=== PATIENT | male | born 1950 | race African-American/Black ===

== ENCOUNTER 2017-01-26 14:37 | Inpatient (IN) | payer MEDICARE, OTHER ==
[~2017-01-26] VITALS: Ht 185.4 cm; Wt 94.2 kg
[2017-01-26] VITALS (11 sets, daily range): BP systolic 96–113; BP diastolic 47–71; BMI 23.2
--- NOTE | ~2017-01-26 | OP ---
PATIENT NAME: ANÍBAL DUARTE MEDICAL RECORD: [id number] :48 LOCATION:[facility] D.2305 ADMISSION DATE:01/26/17 SURGEON: EPI GUERRIER MD DATE OF OPERATION: 01/29/2017 PREOPERATIVE DIAGNOSES: 1. Need for IV access. 2. End-stage renal disease. 3. Common bile duct obstruction. 4. Ascending cholangitis. 5. Acute respiratory failure on the ventilator. POSTOPERATIVE DIAGNOSES: 1. Need for IV access. 2. End-stage renal disease. 3. Common bile duct obstruction. 4. Ascending cholangitis. 5. Acute respiratory failure on the ventilator. PROCEDURE: Left IJ 15 cm Trialysis catheter placement. SURGEON: Epi Guerrier MD REPORT OF PROCEDURE: The left chest and neck were prepped and draped in sterile fashion. An ultrasound was used to visualize the left internal jugular vein, 5 cc of 1% lidocaine was infused over the vein. A needle was used to cannulate the jugular vein under ultrasound guidance and a guidewire was advanced with this. Over this wire, a dilator was placed followed by the Trialysis catheter. The catheter aspirated nonpulsatile dark blood and flushed easily with normal saline. This was sutured into place with 4-0 nylons and dressed appropriately. COMPLICATIONS: None. CONDITION: Stable. ANESTHESIA: General endotracheal and local. BLOOD LOSS: Minimal. Procedure done at the bedside. TRANSINT:[id number] Voice Confirmation ID: [id number] DOCUMENT ID: [id number] EPI GUERRIER MD CC: [id number] DICTATION DATE: 01/29/17 162 TASSEL SNIPPER: 01/29/172100 ADM IN [place] [id number] [place] [address]
[~2017-01-26 14:37] MED LIST: ACETAMINOPHEN500 M1 PO; CYMBALTA20 MG PO; DULCOLAX10 MG/SUPP RC; FUROSEMIDE20 MG PO; HUMALOG 30100 UNITS/; LEVAQUIN250 MG PO; LEVOXYL75 MCG PO; LOTRISONE CREAM45 GM TOPICAL; NEPHRO-VITE RX1 TAB PO; NORCO 7.5/325 T1 TA1 PO; NYSTATIN1 PWD TOPICAL; PACERONE100 MG PO; TIROSINT13 MCG; TUMS500 MG; TUMS500 MG PO; ULTRAM50 MG; ULTRAM50 MG PO; ZOFRAN4 MG PO
--- NOTE | 2017-01-26 15:14 | NUR ---
PT RECIEVED FROM HIDE PASTER AT 1420 ALERT, CONFUSED, VSS, SEE ADMISSION ASSESSMENT, LUNGS CLEAR THOUGH DIMISHED IN LOWER LOBES, PIV IN RIGHT WRIST, SUPRAPUBIC CATHETER IN PLACE DRAINING DARK YELLOW URINE, CONTRACTURES TO LOWER EXTREMETIES, JONATHAN FAITH AND LESLIE CONSULTED, MARCELL ON UNIT SPEAKING TO , AT BEDSIDE. WILL CO MARIAN TO MONITOR
[2017-01-26] MEDS ORDERED: MEGACE40 MG PO (15:24)
[2017-01-26] MEDS ORDERED: OXYBUTYNIN CHLOR5 MG PO (15:25)
[2017-01-26 15:56] LABS: BASOPHILS 0.3 % (0-2); EOSINOPHILS 0.1 % (0-7); HEMOGLOBIN 8.9 g/dL (13.5-17.5); IMMATURE GRANULOCYTES 2.3 % (0-5); LYMPHOCYTES 9.2 % (15-50); MCHC 31.8 g/dL (31.0-37.0); MCV 94.3 fL (80.0-100.0); MEAN PLATELET VOLUME 9.8 fL (7.4-10.4); MONOCYTES 7.7 % (2-11); NEUTROPHILS 80.4 % (40-80); PLATELET COUNT 300 10x3/uL (130-400); RBC 2.97 10x6/uL (4.20-6.10); RDW 19.7 % (11.5-14.5); WBC 19.2 10x3/uL (4.8-10.8)
[2017-01-26 16:14] LABS: ALBUMIN 1.6 g/dL (3.4-5.0); ALKALINE PHOSPHATASE 397 U/L (46-116); CARBON DIOXIDE 25.9 mmol/L (21.0-32.0); CREATININE - SERUM 0.8 mg/dL (0.6-1.3); UREA NITROGEN 47 mg/dL (7-18); eGFR NON AFRICAN AMERICAN > 90 mL/min (90-120)
[2017-01-26 16:31] LABS: CALC OSMOLALITY 290 mosm/kg (275-300); CALCIUM 8.3 mg/dL (8.5-10.1); CHLORIDE - SERUM 97 mmol/L (98-107); GLUCOSE 151 mg/dL (74-106); POTASSIUM - SERUM 4.2 mmol/L (3.5-5.1); SODIUM 138 mmol/L (136-145)
[2017-01-26 16:34] LABS: ALT (SGPT) 115 U/L (10-68); PROTEIN - SERUM 5.7 g/dL (6.4-8.2)
[2017-01-26 16:35] LABS: BILIRUBIN - DIRECT 9.23 mg/dL (0.00-0.30); BILIRUBIN - INDIRECT 4.87 mg/dL (0.00-1.00)
--- NOTE | 2017-01-26 17:13 | NUR ---
PT REPOSITIONED, VSS, CONTRAST DRANK FOR CT WITHOUT DIFFICULTY, CT AWARE, DENIES PAIN, WILL CONTINUE TO MO NITOR
--- NOTE | 2017-01-26 19:20 | NUR ---
SHIFT ASSESSMENT COMPLETE. PT IS ALERT AND CAN FOLLOW COMMANDS. HE STILL THINKS HE IS IN MARK[place], BUT HE REORIENTS EASILY. NC @ 2 L/MIN. S1S2 AUDIBLE. HR 80 BPM, NS VIA TELEMETRY. RR EVEN AND NONLABORED, CLEAR BREATH SOUNDS THROUGHOUT ALL LOBES. BS ACTIVE X4. COLOSTOMY BAG IN L UPPER QUAD WITH A SCANT AMOUNT OF FECAL MATTER. SUPRA PUBIC CATH DRAINING DARK CONCENTRATED URINE. RADIAL AND PEDAL PULSES PALP. L UPPER ARM FISTULA, L ARM RESERVE. THRILL AND BRUIT PALP/AUSCULTATED. CONTRACTURES IN LOWER LEGS. NPO. PT DRANK CONTRAST FOR CT OF ABD. L WRIST IV. NO FLUIDS INFUSING AT THIS TIME PER GERSCH REQUEST. JAUNDICE IN BOTH EYES. PUPILS 3 MM, BRISK REACTION TO LIGHT. PT REQUEST HIS BLANKET OVER HIS HEAD AT THIS TIME SO HE CAN SLEEP IN THE DARK. PT DENIES ANY FURTHER REQUEST. WILL CONT WITH POC.
--- NOTE | 2017-01-26 21:30 | NUR ---
PT REPOSITIONED FOR COMFORT. PILLOW INBETWEEN LEGS REQUESTED. PT ASKS THAT HIS FACE BE COVERED WITH HIS BLANKET WHEN HE SLEEPS. BLANKET PULLED UP OVER HIS FACE PER REQUEST. CALL LIGHT IN REACH. WILL CONT TO MONITOR.
--- NOTE | 2017-01-26 23:00 | NUR ---
REASSESSMENT COMPLETE. ORAL CARE PROVIDED AND LEFT ON BED SIDE TABLE. PT ALERT AND ORIENTED X3. HE STILL THINKS HE IS IN MARKUS. REORIENTS EASILY. JAUNDICE NOTED IN BOTH EYES. NC @ 2L/MIN, O2 SAT 99%. WHEN TALKING TO PT HE RESPONDS APPROPRIATELY AT FIRST BUT THEN DRIFTS OFF TO SLEEP. RADIAL AND PEDAL PULSES PALP. S1S2 AUDIBLE; HR 80 NORMAL SINUS RHYTHM. RR REGUALR AND NONLABORED. PT DENIES ANY FURTHER REQUESTS. WILL CONT TO MONITOR.
[2017-01-27] VITALS (51 sets, daily range): BP systolic 65–127; BP diastolic 36–88; Ht 185.4 cm; Wt 94.2 kg
--- NOTE | 2017-01-27 01:30 | NUR ---
PT RESTING PEACEFULLY AT THIS TIME. ORAL CARE PROVIDED. VSS. PT DENIES ANY FURTHER REQUESTS. CALL LIGHT IN REACH. WILL CONT TO MONITOR.
[2017-01-27 02:57] LABS: BASOPHILS 0.2 % (0-2); EOSINOPHILS 0.1 % (0-7); HEMATOCRIT 27.5 % (42.0-54.0); IMMATURE GRANULOCYTES 2.1 % (0-5); LYMPHOCYTES 10.5 % (15-50); MCHC 32.7 g/dL (31.0-37.0); MCV 91.7 fL (80.0-100.0); MEAN PLATELET VOLUME 9.9 fL (7.4-10.4); MONOCYTES 6.3 % (2-11); NEUTROPHILS 80.8 % (40-80); PLATELET COUNT 303 10x3/uL (130-400); RDW 19.8 % (11.5-14.5); WBC 16.8 10x3/uL (4.8-10.8)
[2017-01-27 03:10] LABS: APTT 46.4 SECONDS (22.8-39.4); INR 2.9 (0.85-1.17); PROTIME 30.6 SECONDS (11.6-15.0)
--- NOTE | 2017-01-27 03:20 | NUR ---
REASSESSMENT COMPLETE. PT STATES THAT HE WANTS TO REMAIN ON THE SIDE THAT HE IS LYING ON. ORAL CARE PROVIDED. BP TENDS TO TREND DOWN WHILE HE IS ASLEEP, BUT ONCE HE IS AWAKENED IT REBOUNDS. HE STATES THAT HE FEELS "OKAY" AT THIS TIME. VSS. NO CHANGES NOTED. TV ON. BED IN LOWEST POSITION. CALL LIGHT IN REACH.
[2017-01-27 03:22] LABS: ALBUMIN 1.6 g/dL (3.4-5.0); CALCIUM 8.5 mg/dL (8.5-10.1); CARBON DIOXIDE 29.1 mmol/L (21.0-32.0)
[2017-01-27 03:25] LABS: ANION GAP 14.3 mmol/L (8-16); BILIRUBIN - TOTAL 28.42 mg/dL (0.2-1.3); CREATININE - SERUM 5.7 mg/dL (0.6-1.3); POTASSIUM - SERUM 3.4 mmol/L (3.5-5.1); PROTEIN - SERUM 5.9 g/dL (6.4-8.2)
--- NOTE | 2017-01-27 05:15 | NUR ---
REPOSITIONED PT WITH RESPIRATORY AT BEDSIDE. PT STATES THAT HIS BUTTOCKS IS SORE. MOVED HIM OVER TO THE LEFT. PILLOWS INBETWEEN LEGS. ORAL CARE PROVIDED. PT STATES THAT HE IS COMFORTABLE AT THIS TIME AND DENIES ANY FURTHER REQUESTS. VSS. WILL CONT TO MONITOR.
--- NOTE | 2017-01-27 07:00 | NUR ---
REPORT RECIEVED FROM OFF GOING NURSE. PT. IN BED WITH CONTRACTED BLE. PT MAKING UNCOPREHENISBLE SOUNDS BUT ABLE TO ANSWER "YES". DENIES PAIN AT THIS TIME. ALERT TO PERSON ONLY. FISTULA TO LUE. LUE RESERVERED. BRUIT ASCULTATED AND THRILL PALPATEED. COLOSTOMY TO L ABD IN PLACE WITH NO FECES NOTED. STOMA PINK AND WET. SUPRAPUBIC CATHETER NOTED. HX OF PENIS AMPUTATION SURGERY. O2 AT 2L VIA. NO FAMILY AT BED SIDE. CALL LIGHT IN REACH. WILL CONT POC.
--- NOTE | 2017-01-27 08:00 | NUR ---
CALLED R/T CONCENT FOR TODAY'S PROCEDURE R/T NICKO. CONCENT IN CHART. STATED WHE WILL BE HERE LATER FOR ADVANSED DIRECTIVES.
--- NOTE | 2017-01-27 08:30 | NUR ---
BP TAKEN IN RIGHT ARM WITH RESULTS OF 45/25 64/44 64/46. MD NOTIFIED WITH NEW ORDERS TO START BOLUS AND POSSIBLE LEVOPHED.
--- NOTE | 2017-01-27 09:00 | NUR ---
PT INR 2.9. SPOKE WITH DR FAITH WITH ORDER ABOUT VIT K. ALSO STATED THE SURGERY MIGHT BE POSTPONED
--- NOTE | 2017-01-27 09:10 | NUR ---
NEW ORDRES PER VOISE FOR 1 UNIT OF FFP WITH 1 ON HOLD AND TO RECHECK INR AFTER GIVEN. AWARE OF BP ISSUE.
--- NOTE | 2017-01-27 09:18 | NUR ---
NS 250ML BOLUS STARTED.
--- NOTE | 2017-01-27 09:41 | NUR ---
IV STARTED IN RIGHT AC WITH 20G CATH, GOOD BLOOD RETURN NOTED, AND FLUSHED EASILY, WITHOUT REDNESS OR EDEMA AT SITE. SLIGHTLY POSITIONAL AT TIMES.
--- NOTE | 2017-01-27 09:45 | NUR ---
BP 74/31. SECOND BOLUS STARTED PER ORDRES.
--- NOTE | 2017-01-27 10:13 | NUR ---
ESDRAS [place] RECIEVED FROM PHARMACY. STARTED PER ORDRES. 2ND BOLUS COMPLETED. BP 83/39 DIALASIS NURSE AT BED SIDE. MADE HER AWARE AWARE OF BP. CASING CREW PUSHER PAGED.
--- NOTE | 2017-01-27 10:19 | NUR ---
BP 88/41. STILL WAITING FOR MD TO CALL BACK.
--- NOTE | 2017-01-27 11:00 | NUR ---
LEVOPHED STARTED PER ORDERS. PT FFP READY AND VERIFIED WITH 2ND RN AND BHAVNA. NO S/SX OF ASE NOTED.
--- NOTE | 2017-01-27 11:20 | NUR ---
VOICED STATED IF THE HAVE NOT CAME FOR CT, THEN NOT TO WORRY ABOUT IT.
--- NOTE | 2017-01-27 12:24 | NUR ---
FFP COMPLETED. NO S/SX OF ASE NOTED. WILL CONT. TO MONITOR VS PER POLICY.
--- NOTE | 2017-01-27 12:34 | NUR ---
PT/INR REORDERED PER ORDER FROM DR FAITH.
[2017-01-27 12:50] LABS: INR 3.07 (0.85-1.17)
--- NOTE | 2017-01-27 13:00 | NUR ---
REMAINS ON LEVOPHED 5MCG/MIN. SBP STABLE AT 110.
--- NOTE | 2017-01-27 14:00 | NUR ---
REMAINS ON LEVOPHED. SPB STABLE.
--- NOTE | 2017-01-27 15:25 | NUR ---
GI NURSE HERE TO GET PT READY FOR GI PROCEDURE.
--- NOTE | 2017-01-27 15:29 | NUR ---
* Is the patient Alert and Oriented? Yes 0 * How many steps to enter\exit or inside your home? Ramp 0 * PCP Dr. Henderson in [place] 0 * Pharmacy [facility] 0 * Preadmission Environment Home with Family 0 * ADLs Partial Dependent 0 * Partial ADLs (Assistance needed) Ambulation Bathing Dressing Medication Management Toileting Transfers 0 * Equipment Bedside [facility] Bed Inga Lift Trapeze Wheelchair 0 * List name and contact numbers for known caregivers / representatives who currently or will assist patient after discharge: Spouse - Taylor [phone] 0 * Community resources currently utilized Home Health Other 0 * Please name any agencies selected above. [facility] [phone] [facility] 0 * Additional services required to return to the preadmission environment? No 0 * Can the patient safely return to the preadmission environment? Yes 0 * Has this patient been hospitalized within the prior 30 days at any hospital? No Patient Name: ANÍBAL DUARTE Admission Status: Elective Accout number: [id number] Admission Date: 01-26-2017 : 1950 Admission Diagnosis:UNSPECIFIED JAUNDICE Attending: NAHID Current LOS: 1 Planned Disposition: Home with Home Health Primary Insurance: MEDICARE A & B Discharge Planning Comments: CM spoke with spouse, Taylor, via telephone to assess dc plans/needs. She reports patient lives at home with her. She reports she is his primary caregiver & assists him daily with all ADL's. He goes to HD on MWF @ 1100 via [facility]. He is currently being seen by [facility] for monthly britt changes. They want to resume services at discharge. CM will follow & assist as needed. Import/Export Specialist: Renay Ferrell
--- NOTE | 2017-01-27 15:30 | NUR ---
PT CALLED TO NOTIFY ABOUT PROCEDURE. NO ANSWER. CONCENT FORM IN CHART. NO ANSWER FROM PHONE
[2017-01-27 15:33] LABS: INR 1.49 (0.85-1.17); PROTIME 17.9 SECONDS (11.6-15.0)
--- NOTE | 2017-01-27 15:35 | NUR ---
INR 1.49. GI TEAM HERE IN ICU. PROCEDING WITH ERCG.
--- NOTE | 2017-01-27 15:36 | NUR ---
ATTEPMTED TO CALL AND SISTER ABOUT ERCG PROCEDURE. NO ANSWER.
--- NOTE | 2017-01-27 15:48 | NUR ---
LEFT ICU WITH GI TEAM FOR ERCG. BREATHING NORMAL AND UNLABORED. SBP STABLE AT 108. 0 S/SX OF DISTRESS/DISCOMFORT NOTED. WILL CONT POC
--- NOTE | 2017-01-27 19:00 | NUR ---
REPORT GIVEN TO ON COMING NURSE. PT HAS NOT CAME BACK FROM SURGERY YET.
--- NOTE | 2017-01-27 19:20 | NUR ---
PT ARRIVED BACK IN [address] ROSS. REPORT RECIEVED. LEVOPHED @ 2.5 MCG/KG/MIN. BP 109/74. PT INTUBATED. VENT SETTINGS: A/C;L RATE-14; TIDAL VOLUME-600; FIO2-100%; PEEP 5.0. O2 SAT 98%. PT EYES ARE OPEN AND HE NODS YES/NO APPROPRIATELY TO QUESTIONS ASKED. WILL CONT WITH POC.
--- NOTE | 2017-01-27 19:30 | NUR ---
SHIFT ASSESSMENT COMPLETE. PT ABLE TO FOLLOW SIMIPLE COMMANDS. HAND DIAMOND BROKER ARE WEAK. NODS HIS HEAD YES/NO WHEN ASKED QUESTIONS. ETT SIZE 7, POSITION: 22 LEFT LIPLINE. S1S2 AUDIBLE. HR 66 BPM NS VIA TELEMETRY. L UPPER ARM FISTULA, BRUIT/THRILL PALP/AUSCULTATED. AREA CDI. CLEAR BREATH SOUNDS THROUGHOUT ALL LOBES. ABD FIRM AND DISTENDED. COLOSTOMY ON L UPPER ABD. BOWEL SOUNDS ACTIVE IN ALL FOUR QUADS. SUPRA PUBIC CATH NOTED DRAINING DARK, EDGARDO, CONCENTRATED URINE. RADIAL AND PEDAL PULSES PALP. R HAND AND R AC PIV. R AC INFUSING LEVOPHED @ 2.5 MCG/KG/MIN. BP: 98/54, RR 14, TEMP 97.7 AXILLARY, O2 SAT 98%. SOFT WRIST RESTRAINTS REMOVED AND SKIN INSPECTED, WNL. BED ALARM ON. BED IN LOWEST POSITION. PT IN SIGHT OF NURSE'S STATION. WILL CONT WITH POC.
--- NOTE | 2017-01-27 21:15 | NUR ---
PT RESTING PEACEFULLY AT THIS TIME. LEVOPHED TURNED UP TO 5 MCG/KG/MIN DUE TO A TREND DOWN IN PTS BP. WILL CONT TO MONITOR BP CLOSELY. NO SIGNS OF ACUTE DISTRESS AT THIS TIME.
--- NOTE | 2017-01-27 23:30 | NUR ---
REASSESSMENT COMPLETE. PT ABLT TO FOLLOW SIMPLE COMMANDS. WEAK HAND SPOUTER BILAT. BP IS STAYING IN THE LOW 100'S SYSTOLIC, MAP IS OVER 65. S1S2 AUDIBLE. ABD FIRM AND DISTENDED WITH ACTIVE BS IN ALL FOUR QUADS. RADIAL AND PEDAL PULSES PALP. REPOSITIONED FOR COMFORT. BED IN LOWEST POSITION. WILL CONT TO MONITOR.
[2017-01-28] VITALS (90 sets, daily range): BP systolic 70–126; BP diastolic 44–102
--- NOTE | 2017-01-28 01:15 | NUR ---
REPOSITIONED PT FOR COMFORT. ORAL CARE PROVIDED. BP 96/50 MAP 70. PT NODS HIS HEAD THAT HE IS COMFORTABLE AT THIS TIME. WILL CONT TO MONITOR CLOSELY. NO S/S OF DISTRESS NOTED AT THIS TIME.
--- NOTE | 2017-01-28 03:30 | NUR ---
REASSESSMENT COMPLETE. HERNIA ON ABD MEASURED 8 IN X 8 IN. ABD IS FIRM AND DISTENDED. ACTIVE BS X4. S1S2 AUDIBLE. PT IS ABLE TO FOLLOW SIMPLE COMMANDS. LEVOPHED INFUSING AT 5 MCG/KG/MIN. BP IS STABLE AT THIS TIME. NO FURTHER CHANGES NOTED. WILL CONT TO MONITOR.
--- NOTE | 2017-01-28 05:20 | NUR ---
PT IS MORE ALERT AT THIS TIME. REPOSITONED FOR COMFORT AND ORAL CARE PROVIDED. BP READINGS HAVE BEEN TRENDING DOWN AND THE LATEST ONE IS 70/53. LEVOPHED INCREASED TO 6 MCG/KG/MIN. WILL CONT TO MONITIOR.
--- NOTE | 2017-01-28 07:00 | NUR ---
REPORT RECIEVED FROM OFF GOING NURSE. PT REMIANS ON VENT SIMV RATE OF 14 T VOL 600, FIO2 100% PEEP 5. SIZE 7 22 AT THE LEFT LIP. PT PT REPOSITIONED AND BUTTPASTE APPLIED TO BUTTOX. HYPOACTIVE BOWEL SOUNDS X4. HX OF PENECTOMY. COLOSTOMY NOTED WITH A WET PINK STOMA. ABD DESTENED. HX OF HERNIA. SUPRAPUBIC CATH NOTED WITH NO OUT PUT. SEE ASSESSMENT FLOW SHEET. WILL CONT POC
--- NOTE | 2017-01-28 07:04 | OP ---
PATIENT NAME: ANÍBAL DUARTE MEDICAL RECORD: [id number] :48 LOCATION:[facility] D.2305 ADMISSION DATE:01/26/17 SURGEON: REILLY FAITH DO DATE OF OPERATION: 01/27/2017 PROCEDURE: ERCP with sphincterotomy and stent placement. INDICATIONS FOR PROCEDURE: Hyperbilirubinemia and suspected choledocholithiasis. SCOPE: Olympus video side-viewing duodenoscope. MEDICATIONS: General anesthesia by anesthesia. ESTIMATED BLOOD LOSS: Less than 2 mL. COMPLICATIONS: During intubation for general anesthesia, the patient may have aspirated some, he did regurgitate stomach contents. He was placed on his side to remove and suction all the vomitus and was intubated subsequently. We had no problem with oxygenation intraprocedurally that I am aware of. Also, during the procedure, a stent was displaced proximally into the common bile duct and is currently a retained stent. There is a subsequent stent that is allowing drainage of bile around the stricture and the retained stent within the duct. FINDINGS: Informed consent was given. The patient was sedated as above. The duodenoscope was placed through the mouth and directed under visualization to the second portion of the duodenum where the ampulla was encountered. On passage of the endoscope there were multiple sites throughout the esophagus, stomach, and duodenum where inflammation and ulcerations were present. I had significant difficulty cannulating the common bile duct. Approximately 45 minutes was spent trying to do so. Precut sphincterotomy with the sphincterotome was performed and dissection from the pancreatic orifice and the biliary orifice eventually allowed deep biliary cannulation. Initial cholangiogram revealed an extremely dilated duct to approximately 2 cm without a visualized stone, which was felt to be the case from CT imaging. There did seem to be a distal stricture crossing approximately a 1.5 cm segment. It was dilated up to 6 mm with a hurricane balloon and was brushed with a cytology brush. Double stenting was attempted to perform a prolonged mechanical dilation. The first stent placed was a 7-Tamazight x 7 cm straight plastic stent. The second stent was a 7-Tamazight x 5 cm straight plastic stent. When the second stent was placed alongside the other, the original stent migrated inward to where just the tip could be visualized at the ampullary orifice. As a snare was placed down the endoscope to remove the second stent, the first stent migrated inward into the duct beyond the strictured site. Multiple attempts were made at trying to remove the stent, but was unsuccessful at this time. Subsequently, a 10-Tamazight x 7 cm straight plastic stent was placed across the stricture. This procedure lasted approximately 2 hours or longer and it was felt unsafe to continue this procedure at this time, so a stent was placed and the procedure was terminated. IMPRESSION: 1. No definite stone encountered. OPERATIVE REPORT [id number] ANÍBAL DUARTE 2. A distal common bile duct stricture was encountered (as described above), which was dilated and brushed. 3. Retained stent within the common bile duct and a subsequent stent placement for effective drainage. PLAN AND RECOMMENDATIONS: 1. Monitor for decrease in bilirubin and decompression of the biliary system. 2. Okay to proceed to a laparoscopic cholecystectomy when clinically stable. 3. I will need to repeat the ERCP for another attempt at removal of the retained stent. 4. Follow up on biopsies / biliary brushings. TRANSINT:[id number] Voice Confirmation ID: [id number] DOCUMENT ID: [id number] REILLY FAITH DO at 0704 CC: [id number] DICTATION DATE: 01/27/17 1841 EXCELLENCE COACH: 01/28/17 0054 [facility] [address] [place] [address]
[2017-01-28 07:42] LABS: HEMATOCRIT 29.9 % (42.0-54.0); HEMOGLOBIN 9.9 g/dL (13.5-17.5); MCH 29.9 pg (26.0-34.0); MCHC 33.1 g/dL (31.0-37.0); MCV 90.3 fL (80.0-100.0); MEAN PLATELET VOLUME 10.4 fL (7.4-10.4); PLATELET COUNT 311 10x3/uL (130-400); RBC 3.31 10x6/uL (4.20-6.10); RDW 19.7 % (11.5-14.5); WBC 34.4 10x3/uL (4.8-10.8)
[2017-01-28 07:54] LABS: INR 1.29 (0.85-1.17)
[2017-01-28 08:16] LABS: EOSINOPHILS 1 % (0-7); LYMPHOCYTES 9 % (15-50); MONOCYTES 6 % (2-11); NEUTROPHILS 70 % (40-80); PLATELET ESTIMATE NORMAL
[2017-01-28 08:17] LABS: ANISOCYTOSIS OCC; HYPOCHROMASIA 1+; TARGET CELLS OCC
[2017-01-28 08:23] LABS: ALBUMIN 1.6 g/dL (3.4-5.0); CALCIUM 8.1 mg/dL (8.5-10.1); POTASSIUM - SERUM 3.8 mmol/L (3.5-5.1)
[2017-01-28 08:24] LABS: ANION GAP 23.1 mmol/L (8-16); BILIRUBIN - TOTAL 27.93 mg/dL (0.2-1.3); CARBON DIOXIDE 21.7 mmol/L (21.0-32.0); PROTEIN - SERUM 5.3 g/dL (6.4-8.2)
--- NOTE | 2017-01-28 08:30 | NUR ---
DR PATRICIA NOTIFIED ABOUT HERNIA AND AWARE. NO NEW ORDRES.
--- NOTE | 2017-01-28 08:45 | NUR ---
CALLED TO GET CONCENT FOR TODAYS PROCEDURE. PT BECOMING MORE AND AGGITATED. PT IN RESTRAINTS. DENIEING PAIN BY SHAKING HEAD NO. NO RESPONSE FOR .
--- NOTE | 2017-01-28 09:09 | NUR ---
CALLED BACK AND VERBAL CONSENT OBTAINED WITH THUAN SHAH RN WITTNESS FOR TODAYS PROCEDURE.
--- NOTE | 2017-01-28 09:36 | NUR ---
FIO2 TUNRED DOWN PER RT. SPO2 STABLE ABOVE 90% NO S/SX OF DISTRESS/DISCOMFORT NOTED.
--- NOTE | 2017-01-28 09:50 | NUR ---
DR GUERRIER PAGED DUE TO PT'S INCREASED AGGITATION. PT NOT RECIEVING ANY SEDATION. CHEY STATED TO PAGE RENAL.
--- NOTE | 2017-01-28 09:52 | NUR ---
DR CARMINE LANE AND TAMARA ALEMAN PER ORDRES.
--- NOTE | 2017-01-28 10:25 | NUR ---
DIPROVAN STARTED AND TIRATED TO 25MCG/MIN. PT CALM AND NON AGGITATED.
--- NOTE | 2017-01-28 10:51 | NUR ---
DR FAITH AT BED SIDE. STATED THAT HIS PRECEDURE WILL BE AROUND 4PM.
--- NOTE | 2017-01-28 10:54 | NUR ---
BP DECREASEING. LEVOPHED TITRATED. BP 74/54
--- NOTE | 2017-01-28 11:00 | NUR ---
MARKUS FROM [email or web address] PAGED.
--- NOTE | 2017-01-28 11:04 | NUR ---
MARKUS ROSALESYALIS STATED DIALISIS WILL NO BE NESSESSARY FOR TODAY SURGERY.
--- NOTE | 2017-01-28 13:00 | NUR ---
RESTING IN BED WITH NO CHANGED. BREATHING NORMAL AND UNLABORED. 0 S/SX OF DISTRESS/DISCOMFORT NOTD. REPOSITIONED
--- NOTE | 2017-01-28 13:15 | NUR ---
AT BEDSIDE. TEETH TAKEN HOME PER .
--- NOTE | 2017-01-28 15:10 | NUR ---
IV IN RIGHT HAND NON PATENT. NO SWELLING/REDDNESS. CATHER TIP INTACT. NEW IV STARTED PER SUMMER HIRSCH IN RIGHT HAND.
--- NOTE | 2017-01-28 15:19 | NUR ---
PHARMACY CALLED BECAUSE IV VANC NOT IN ICU.
--- NOTE | 2017-01-28 15:25 | NUR ---
IV JESSICA HUGGINS PER ORDRES.
--- NOTE | 2017-01-28 16:27 | NUR ---
GI TEAM LEFT WITH PT FOR PROCEDURE. PT BREATHING NORMAL AND UNLABORED. 0 S/SX OF DISTRESS/DISCOMFORT NOTED.
--- NOTE | 2017-01-28 16:36 | NUR ---
1629 TO ROOM FROM ICU PATIENT INTUBATED. ALERT SOME. Pt. bagged by [email or web address].
--- NOTE | 2017-01-28 17:12 | NUR ---
CVL CONSENT WITH MAGO () WITTNESS BY ANOTHER RN.
--- NOTE | 2017-01-28 17:21 | NUR ---
DR GUERRIER PAGED ABOUT CONSULT FOR CVL PLACEMENT. AND AWARE
--- NOTE | 2017-01-28 17:23 | NUR ---
2 stents removed and 1 repositioned.
--- NOTE | 2017-01-28 17:27 | NUR ---
7ml dye used and 1 min 26 seconds xray time.
--- NOTE | 2017-01-28 17:38 | NUR ---
Dialysis Coordinator: [facility] Thu/Thu/Thu @ 10:45am. SIVA YOUSSEF.
--- NOTE | 2017-01-28 17:41 | NUR ---
GI BACK WITH PT. DIPROVAN OFF AND LEVOPHED AT 14MG WITH A NEW BAG HUNG. VS STABLE. PT UNCONSIOS. BREATHING NORMAL AND UNLABORED. REMAINS ON VENT WITH SAME SETTINGS.
--- NOTE | 2017-01-28 17:45 | NUR ---
REPORT GIVEN TO ON COMING NURSE. PT BREATHING NORMAL AND UNLABORD. 0 S/SX OF DISTRESS/DISCOMFORT NOTED.
--- NOTE | 2017-01-28 19:10 | NUR ---
SHIFT ASSESSMENT COMPLETE, PATIENT SEDATED AND ON VENT, WILL OPEN EYES. SEE FLOWSHEET FOR DETAILS. VSS, ORAL CARE PROVIDED, WILL MONITOR.
--- NOTE | 2017-01-28 21:05 | NUR ---
NO VISITORS AT THIS TIME.
--- NOTE | 2017-01-28 23:05 | NUR ---
REASSESSMENT COMPLETE, SEE FLOWSHEET. VSS, TURNED, ORAL CARE PROVIDED.
[2017-01-29] VITALS (98 sets, daily range): BP systolic 72–137; BP diastolic 41–74
--- NOTE | 2017-01-29 01:05 | NUR ---
PATIENT RESTING WELL ON VENT. VSS, RR EVEN AND NON LABORED. WILL MONITOR.
--- NOTE | 2017-01-29 03:05 | NUR ---
REASSESSMENT COMPLETE, SEE FLOWSHEET. VSS, WILL MONITOR.
--- NOTE | 2017-01-29 05:00 | NUR ---
TURNED PER PROTOCOL, PATIENT RESTING WELL. VSS, WILL MONITOR.
[2017-01-29 06:15] LABS: HEMATOCRIT 24.2 % (42.0-54.0); MCH 29.7 pg (26.0-34.0); MCHC 33.1 g/dL (31.0-37.0); MEAN PLATELET VOLUME 10.9 fL (7.4-10.4); PLATELET COUNT 251 10x3/uL (130-400); RBC 2.69 10x6/uL (4.20-6.10); RDW 19.7 % (11.5-14.5); WBC 29.6 10x3/uL (4.8-10.8)
[2017-01-29 06:40] LABS: ALBUMIN 1.4 g/dL (3.4-5.0); ANION GAP 22.6 mmol/L (8-16); BILIRUBIN - TOTAL 19.84 mg/dL (0.2-1.3); CALCIUM 7.7 mg/dL (8.5-10.1); CREATININE - SERUM 6.6 mg/dL (0.6-1.3); POTASSIUM - SERUM 3.6 mmol/L (3.5-5.1); VANCOMYCIN - RANDOM 17.4 ug/mL (10.0-20.0)
--- NOTE | 2017-01-29 07:00 | NUR ---
SHIFT ASSESSMENT COMPLETE, CONTINUES ON LEVOPHED TITRATE TO BP,, PROPOFOL AT 10MCG, CONTINUES ON VENNT, SINV, RATE 14 FIO2 30%, WILL CONTINUE TO MONIUTOR
[2017-01-29 07:19] LABS: ANISOCYTOSIS OCC; HYPOCHROMASIA 1+; LYMPHOCYTES 14 % (15-50); MONOCYTES 6 % (2-11); NEUTROPHILS 61 % (40-80); PLATELET ESTIMATE NORMAL
--- NOTE | 2017-01-29 08:34 | NUR ---
TITRATING LEVOPHED TO MAINTIAN SYSTOLIC BP>90 AND MAP >60, CURRENTLY AT 12MCG
--- NOTE | 2017-01-29 10:01 | NUR ---
VSS NO ACUTE CHANGES, REPOSITIONED, ORAL CARE AND SUCTIONING PROVIDED
--- NOTE | 2017-01-29 10:12 | NUR ---
Nutrition follow-up: Pt intubated, sedated with propofol @ 11.4 ml/hr at this time. Labs reviewed Wt: 191# If pt remains intubated, recommend starting Nepro @ 20 ml/hr with gradial increase to goal rate of 55 ml/hr. RDN following.
--- NOTE | 2017-01-29 11:00 | NUR ---
SPOKE WITH DR LOU DIALYSIS HAVING TROUBLE ACCESSING FISTULA THIS AM, THEN WITH DR HERNANDEZ NURSE, WILL INSERT TRIALYSIS CATH WHEN CVL PLACED SO PT CAN HAVE DIALYSIS
--- NOTE | 2017-01-29 12:21 | NUR ---
LEVOPHED TITRATING TO BP, CURRENTLY AT 11MCG, BP STABLE, WILL CONTINUE TO MONITOR
--- NOTE | 2017-01-29 14:02 | NUR ---
LEVOPHED TITRATED TO 8MCG, VSS, WILL CONTINUE TO MONITOR
--- NOTE | 2017-01-29 15:46 | NUR ---
LEFT IJ TRIALYSIS CATH PLACED BY DR GUERRIER, PT TOLERATED WELL, AWAITING CXR VERIFICATION OF PLACEMENT THEN DIALYSIS NURSE WILL BEGIN HEMODIALYSIS
--- NOTE | 2017-01-29 16:58 | NUR ---
PT REPOSITIONED SUCTIONING AND ORAL CARE POVIDED, CONTINUE TO TITRATE LEVOPHED, AWAITING CXR TO CONFIRM IJ PLACEMENT, WILL CONTINUE TO MONITOR
--- NOTE | 2017-01-29 18:11 | NUR ---
SPOKE WITH DR QUINTERO, GIVE 1 UNIT OF BLOOD WITH DIALYSIS, SPOKE WITH DIALYSIS AND THEY SAID THEY MAY WAIT UNTIL TOMORROW TO DIALIZE, DR QUINTERO AWARE, STATED THE BLOOD COULD BE GIVEN TOMORROW BY DIALYSIS AND COULD WAIT FOR TONIGHT IF THEY DO NOT DIALYZE.
--- NOTE | 2017-01-29 18:27 | NUR ---
SPOKE WITH DR ROCK ON TELEPHONE CONCERNING DIALYSIS, WILL WAIT TILL TOMORROW FOR DIALYSIS AND FOR BLOOD PER SHWETA
--- NOTE | 2017-01-29 19:10 | NUR ---
REPORT RECEIVED, ASSESSMENT COMPLETE. PATIENT RESTING IN BED AT THIRTY DEGREES. OPENS EYES AND NODS HEAD. ON VENT AND SEDATED AT THIS TIME. VSS, CL IN REACH. BILATERAL WRIST RESTRAINTS ON. SEE SHIFT ASSESSMENT FOR MORE DETAILS.
--- NOTE | 2017-01-29 21:00 | NUR ---
NO VISITORS AT THIS TIME. PATIENT RESTING WELL WITH EYES CLOSED. RR EVEN AND NONLABORED. VSS.
--- NOTE | 2017-01-29 23:10 | NUR ---
REASSESSMENT COMPLETE, NO ACUTE CHANGES. ORAL CARE PROVIDED, PATIENT REPOSISTIONED.
[2017-01-30] VITALS (65 sets, daily range): BP systolic 89–128; BP diastolic 41–63
--- NOTE | 2017-01-30 01:05 | NUR ---
RESTING WITH EYES CLOSED, VSS, WILL MONITOR.
--- NOTE | 2017-01-30 03:10 | NUR ---
REASSESSMENT COMPLETE, VSS, NO ACUTE CHANGES, WILL MONITOR.
[2017-01-30 04:48] LABS: HEMATOCRIT 22.7 % (42.0-54.0); HEMOGLOBIN 7.5 g/dL (13.5-17.5); MCH 29.6 pg (26.0-34.0); MCV 89.7 fL (80.0-100.0); MEAN PLATELET VOLUME 10.2 fL (7.4-10.4); PLATELET COUNT 225 10x3/uL (130-400); RBC 2.53 10x6/uL (4.20-6.10); RDW 19.4 % (11.5-14.5); WBC 31.2 10x3/uL (4.8-10.8)
[2017-01-30 04:58] LABS: ALBUMIN 1.4 g/dL (3.4-5.0); ANION GAP 18.6 mmol/L (8-16); BILIRUBIN - TOTAL 14.68 mg/dL (0.2-1.3); CARBON DIOXIDE 22.2 mmol/L (21.0-32.0); CREATININE - SERUM 6.9 mg/dL (0.6-1.3); PROTEIN - SERUM 5.9 g/dL (6.4-8.2); VANCOMYCIN - RANDOM 28.8 ug/mL (10.0-20.0)
[2017-01-30 05:00] LABS: POTASSIUM - SERUM 2.8 mmol/L (3.5-5.1)
--- NOTE | 2017-01-30 05:00 | NUR ---
RR EVEN WITH NO DISTRSS NOTED. VSS. WILL MONITOR.
[2017-01-30 05:17] LABS: ANISOCYTOSIS OCC; HYPOCHROMASIA 1+; LYMPHOCYTES 12 % (15-50); MONOCYTES 10 % (2-11); NEUTROPHILS 57 % (40-80); PLATELET ESTIMATE NORMAL
--- NOTE | 2017-01-30 06:00 | NUR ---
NO VISITORS AT THIS TIME.
[2017-01-30 07:14] LABS: HEMATOCRIT 22.5 % (42.0-54.0); HEMOGLOBIN 7.5 g/dL (13.5-17.5); MCH 29.8 pg (26.0-34.0); MCHC 33.3 g/dL (31.0-37.0); MCV 89.3 fL (80.0-100.0); MEAN PLATELET VOLUME 9.4 fL (7.4-10.4); PLATELET COUNT 202 10x3/uL (130-400); RBC 2.52 10x6/uL (4.20-6.10); RDW 19.4 % (11.5-14.5); WBC 32.7 10x3/uL (4.8-10.8)
--- NOTE | 2017-01-30 07:21 | NUR ---
LYING IN BED AT THIS TIME. NO ACUTE DISTRESS NOTED. PT EYES OPEN AND PT TURNING HEAD FROM SIDE TO SIDE AT TIMES. FOLLOWS COMMANDS SUCH SQUEEZE HANDS AND OPEN/CLOSE EYES. NO ACUTE DISTRESS NOTED. WILL CONTINUE PLAN OF CARE.
[2017-01-30 07:22] LABS: CREATININE - SERUM 6.9 mg/dL (0.6-1.3)
[2017-01-30 08:09] LABS: EOSINOPHILS 1 % (0-7); HYPOCHROMASIA 1+; LYMPHOCYTES 19 % (15-50); MONOCYTES 11 % (2-11); NEUTROPHILS 62 % (40-80); PLATELET ESTIMATE NORMAL
--- NOTE | 2017-01-30 08:38 | NUR ---
NOTED ORDER PER RENAL CLINICAL TRIALS SPECIALIST TO REDRAW POTASSIUM LEVEL AT 1500.
--- NOTE | 2017-01-30 09:20 | NUR ---
RECIEVING DIALYSIS AT THIS TIME. NO ACUTE DISTRESS NOTED. ALSO NOTED PT HAS ORDERS FOR 2 U PRBC; BLOOD ADMIN DURING DIALYSIS BY DIALYSIS NURSE. ALSO NOTED CULTURES ORDERED TO BE OBTAINED DURING DIALYSIS, CULTURES OBTAINED AND SENT TO LAB PER ORDERS. WILL CONTINUE PLAN OF CARE.
--- NOTE | 2017-01-30 09:25 | NUR ---
WILL ADMIN SCHEDULED ANTIBIOTICS AFTER DIALYSIS COMPLETED.
--- NOTE | 2017-01-30 10:21 | NUR ---
SPOKE WITH LAB, NOTED PT TO BE CONTACT ISOLATION FOR MULTIDRUG INFECTOUS PSEUDOMONAS TO BLOOD (GROWING ENTEROCOCCUS FAECALIS AND PESUDOMONAS AERUGINOSA VIA BLOOD CULTURES FROM THE 7TH). RENAL SAFETY PERSON NOTIFIED. ORDERS RECIEVED TO CONSULT DR ADAIR. WILL CALL CONSULT AT THIS TIME. WILL CONTINUE PLAN OF CARE.
--- NOTE | 2017-01-30 10:34 | NUR ---
PAGED DR ADAIR AT THIS TIME TO NOTIFY OF CONSULT. WAITING FOR CALLBACK.
--- NOTE | 2017-01-30 12:57 | NUR ---
NOTIFIED DR ADAIR OF CONSULT AT THIS TIME. NO NEW ORDERS.
--- NOTE | 2017-01-30 13:40 | NUR ---
LEVOFED TURNED OFF AT THIS TIME. NOTED MAP GREATER THAN 65. ALSO AT THIS TIME PERIPHERAL IVS TO RT AC AND RT HAND DC AT THIS TIME, CATHETER TIP INTACT. WILL CONTINUE PLAN OF CARE.
--- NOTE | 2017-01-30 14:10 | NUR ---
PT EXTUBATED AT THIS TIME. OXYGEN AT 3L VIA NC. NO ACUTE DISTRESS NOTED. WILL CONTINUE PLAN OF CARE.
--- NOTE | 2017-01-30 16:51 | NUR ---
ICE CHIPS OFFERED TO PT. TOLERATES WELL. NO ACUTE DISTRESS NOTED. WILL CONTINUE PLAN OF CARE.
--- NOTE | 2017-01-30 18:24 | NUR ---
DR ADAIR AND DR QUINTERO ROUNDING ON PT AT THIS TIME. NO ACUTE DISTRESS NOTED. WILL CONTINUE PLAN OF CARE.
--- NOTE | 2017-01-30 19:00 | NUR ---
PATIENT GETTING US STUDY ON RIGHT ARM. BECAME VERY SWOLLEN TODAY. SHIFT ASSESSMENT COMPLETE. PATIENT ON 3L NC, RR EVEN AND NONLABORED. S1S2. VSS. PATIENT TURNED AND ORAL CARE GIVEN. SEE FLOWSHEET FOR MORE DETAILS.
--- NOTE | 2017-01-30 19:11 | NUR ---
DR LOU PAGED AT THIS TIME OF A POTASSIUM LEVEL OF 2.7. WAITING FOR CALLBACK.
--- NOTE | 2017-01-30 19:16 | NUR ---
SPOKE WITH DR LOU NOTED ORDERS REGARDING LOW POTASSIUM TO START CHECKING POTASSIUM LEVEL Q4H AND IF IS BELOW 3.0 TO GIVE 20MEQ POTASSIUM. WILL PLACE ORDERS.
--- NOTE | 2017-01-30 19:30 | NUR ---
US SHOWED ABNORMALITIES, BP CUFF MOVED TO LEFT LEG.
--- NOTE | 2017-01-30 20:00 | NUR ---
US REPORTED NO DVT, BUT PHLEBITIS OF THE ANTECUBITAL VEIN. EXTREMITY PREVIOUSLY PROPPED ON PILLOW AND WARM PACKS PLACED. DR ADAIR MADE AWARE OF RESULTS, NO FURTHER ORDERS.
--- NOTE | 2017-01-30 20:10 | NUR ---
PAHARMACY CALLED FOR UNASYN AND PROTONIX.
--- NOTE | 2017-01-30 21:00 | NUR ---
NIGHT MEDS GIVEN WITHOUT DIFFICULTY.
--- NOTE | 2017-01-30 23:05 | NUR ---
REASSESSMENT COMPLETE, SEE FLOWSHEET. NO ACUTE CHANGES. PATIENT REPOSISTIONED, ORAL CARE PROVIDED.
[2017-01-31] VITALS (24 sets, daily range): BP systolic 90–115; BP diastolic 27–73
--- NOTE | 2017-01-31 01:05 | NUR ---
PATIENT RESTING WITH EYES CLOSED. RR EVEN AND NONLABORED. 02 SAT 98%.
--- NOTE | 2017-01-31 03:00 | NUR ---
PATIENT DENIES NEED. TURNED PER PROTOCOL. VSS, WILL MONITOR.
[2017-01-31 04:50] LABS: INR 1.14 (0.85-1.17); PROTIME 14.5 SECONDS (11.6-15.0)
[2017-01-31 04:56] LABS: BASOPHILS 0.8 % (0-2); EOSINOPHILS 1.4 % (0-7); HEMATOCRIT 27.7 % (42.0-54.0); HEMOGLOBIN 9.4 g/dL (13.5-17.5); LYMPHOCYTES 7.9 % (15-50); MCH 29.6 pg (26.0-34.0); MCHC 33.9 g/dL (31.0-37.0); MCV 87.1 fL (80.0-100.0); MEAN PLATELET VOLUME 10.3 fL (7.4-10.4); MONOCYTES 3.4 % (2-11); NEUTROPHILS 68.5 % (40-80); PLATELET COUNT 168 10x3/uL (130-400); RBC 3.18 10x6/uL (4.20-6.10); RDW 18.8 % (11.5-14.5); WBC 28.6 10x3/uL (4.8-10.8)
--- NOTE | 2017-01-31 05:00 | NUR ---
RESTING WITH EYES CLOSED. VSS. CL IN REACH.
[2017-01-31 05:05] LABS: ALBUMIN 1.4 g/dL (3.4-5.0); BILIRUBIN - TOTAL 10.87 mg/dL (0.2-1.3); CALCIUM 7.9 mg/dL (8.5-10.1); PROTEIN - SERUM 5.9 g/dL (6.4-8.2); VANCOMYCIN - RANDOM 21.4 ug/mL (10.0-20.0)
[2017-01-31 05:06] LABS: ANION GAP 12.5 mmol/L (8-16); CARBON DIOXIDE 29.4 mmol/L (21.0-32.0); POTASSIUM - SERUM 2.9 mmol/L (3.5-5.1)
--- NOTE | 2017-01-31 06:00 | NUR ---
NO VISITORS AT THIS TIME.
[2017-01-31 07:20] LABS: HEPATITIS C ANTIBODY <0.1 (0.0-0.9)
--- NOTE | 2017-01-31 13:41 | NUR ---
PATIENT CHOKED ON PO PILLS. SPEECH HERE FOR EVAL, PT HERE FOR EVAL. PATIENT POCKETING FOOD ATE FAIR AT LUNCH TODAY, HAS TO BE FEED. PATIENT DOES NOT HAVE ANY TEETH. TYLENOL GIVEN FOR GENRALIZED PAIN IN LEGS, JOINTS AND BUTTOCK PER PATIENT. RESTED WELL AFTER MEDS GIVEN
--- NOTE | 2017-01-31 19:05 | NUR ---
SHIFT ASSESSMENT COMPLETE, SEE FLOWSHEET FOR ALL FINDINGS. PATIENT ABLE TO TALK AND CARRY CONVERSATION, MOANS A LOT BUT DENIES PAIN. WILL FOLLOW COMMANDS. VSS, TURNED AND ORAL CARE PROVIDED. WILL MONITOR.
--- NOTE | 2017-01-31 21:00 | NUR ---
NO VISITORS AT THIS TIME, MEDS GIVEN.
--- NOTE | 2017-01-31 23:05 | NUR ---
REASSESSMENT COMPLETE, SEE FLOWSHEET. NO ACUTE CHANGES.
[2017-02-01] VITALS (25 sets, daily range): BP systolic 85–111; BP diastolic 28–64
--- NOTE | 2017-02-01 01:05 | NUR ---
RESTING WITH EYES CLOSED, VSS.
--- NOTE | 2017-02-01 03:05 | NUR ---
REASSESSMENT COMPLETE, SEE FLOWSHEET. VSS, RR EVEN AND NONLABORED.
[2017-02-01 04:36] LABS: BASOPHILS 0.8 % (0-2); EOSINOPHILS 1.5 % (0-7); HEMATOCRIT 27.4 % (42.0-54.0); HEMOGLOBIN 9.4 g/dL (13.5-17.5); IMMATURE GRANULOCYTES 18.5 % (0-5); MCH 29.9 pg (26.0-34.0); MCHC 34.3 g/dL (31.0-37.0); MCV 87.3 fL (80.0-100.0); MEAN PLATELET VOLUME 10.2 fL (7.4-10.4); MONOCYTES 2.1 % (2-11); NEUTROPHILS 72.1 % (40-80); PLATELET COUNT 175 10x3/uL (130-400); RBC 3.14 10x6/uL (4.20-6.10); RDW 18.8 % (11.5-14.5); WBC 26.2 10x3/uL (4.8-10.8)
[2017-02-01 04:40] LABS: INR 1.14 (0.85-1.17); PROTIME 14.5 SECONDS (11.6-15.0)
[2017-02-01 04:47] LABS: ALBUMIN 1.4 g/dL (3.4-5.0); ANION GAP 17.2 mmol/L (8-16); BILIRUBIN - TOTAL 9.69 mg/dL (0.2-1.3); CALCIUM 8.1 mg/dL (8.5-10.1); CARBON DIOXIDE 26.1 mmol/L (21.0-32.0); CREATININE - SERUM 4.8 mg/dL (0.6-1.3); POTASSIUM - SERUM 3.3 mmol/L (3.5-5.1); PROTEIN - SERUM 6.3 g/dL (6.4-8.2); VANCOMYCIN - RANDOM 21.6 ug/mL (10.0-20.0)
--- NOTE | 2017-02-01 05:05 | NUR ---
RR EVEN, VSS. WILL MONITOR.
--- NOTE | 2017-02-01 08:14 | NUR ---
AWAKE DOES ANSWER QUESTIONS, THEN REPEATS ANSWER NUMBEROUS TIMES. HAS SPUTUM IN BACK OF THROAT BUT WOULD NOT COUGH ON REQUEST. LEFT IJ TRIALYSIS CATH IN PLACE DRESSING DRY AND INTACT NO REDNESS OR DRAINAGE AT SITE. COLOSTOMY BAG INTACT WITH SMALL AMOUNT DARK STOOL. SUPRA PUBIC CATH INTACT WITH VERY SMALL AMOUNT OF DARK CONCENTRATED URINE. HANDS CONTRACTED BUT WILL RELAX OPEN. KNEES CONTRACTED INTO POSITION. SAYS KASSY DAS BUT DENIES PAIN AT THIS TIME. PROTONIX GTT AT 8 MG HOUR, 10 ML HOUR INFUSING IN TRIALYSIS CATHETER, WITH NS AT 5 ML HOUR.
--- NOTE | 2017-02-01 18:20 | NUR ---
PATIENT POCKETING FOOD EACH MEAL. MOST OF FOOD HAS TO REMOVED FROM MOUTH MANUALLY. FLUID PROVIDED AFTER EACH BITE, HEAD OF BED ELEVATED DURING MEALS. VERY LITTLE FOOD CONSUMED. DRINKS FLUIDS FAIRLY WELL. TAKES LIQUID MEDS WELL. ENCOURAGE PATIENT TO SWALLOWING WHILE MEALS FEED TO HIM. SOME COUGHING AFTER MEALS. OXYGEN INCREASED TO 5 LITER DUE PULSE OX DONE IN 88%. PULSE IMPROVED. TYLNEOL GIVEN FOR LEG PAIN. LARGE AMOUNT OF LIQUID DARK COLOR DRAINAGE WITH FOUL SMELL. FROM RECTAL AREA. COCCYX IS VERY EXCORATED WITH SOME BLODDY DRAINAGE. CATH CARE TO SUPRA PUPIC CATHETER VERY LITTLE OUTPUT. LEFT UPPER ARM DRESSING FROM FISTULA DRY AND INTACT NO THRILL OR BRUIT. TRIALYSIS CATHER LEFT IJ IFUSING WITH NS A 5 ML HOUR. PROTONIX CONTIUES AT 8 MG HOUR. TURNED FROM SIDE TO ALL DAY, KEPT OFF COCCYX AREA.
--- NOTE | 2017-02-01 19:45 | NUR ---
SHIFT ASSESSMENT COMPLETE. PT IS AWAKE AND VERBAL. HE CANNOT TELL ME HIS SITUATION, HOWEVER, HE DOES FOLLOW COMMANDS. NC 5 L/MIN. L IJ TRIALYSIS CATH INFUSING 5 ML/HR OF NS AND 8 MG/HR OF PROTONIX. DRESSING CDI. S1S2 AUDIBLE, HR 81 NORMAL SINUS RHYTHM VIA TELEMETRY. DIMINISHED LUNG SOUNDS HEARD BILAT WITH RONCHI. HYPOACTIVE BOWEL SOUNDS IN ALL QUADS. COLOSTOMY BAG 1/3 FULL OF DARK BROWN STOOL. HERNIA NOTED ON L SIDE OF ABD. SUPRA PUBIC CATH DRAINING DARK URINE. CONTRACTURES IN LOWER EXT. SCD ON R LEG, BP CUFF ON L LEG. DRY, SCALEY SKIN NOTED. APPLIED LOTION. R UPPER ARM SWOLLEN FROM PHLEBITIS. COCCYX HAS STAGE II PRESSURE ULCER. MEPILEX DRESSING APPLIED TO SITE. SITE HAS A MODERATE AMOUNT OF BLOODY DRAINAGE. COMPLETE BED BATH AND LINEN CHANGE. ORAL CARE PROVIDED. REPOSITIONED FOR COMFORT. WILL CONT TO MONITOR.
--- NOTE | 2017-02-01 21:30 | NUR ---
PT RESTING AT THIS TIME. NO SIGNS OF DISTRESS NOTED. ABX INFUSING AT THIS TIME. WILL CONT TO MONITOR.
--- NOTE | 2017-02-01 23:30 | NUR ---
REPOSITIONED PT FOR COMFORT. ORAL CARE PROVIDED. PT UNABLE TO TELL ME HIS NAME, WHERE HE IS, OR BIRTHDAY. HE DOES MAKE OUT SOME CLEAR WORDS AT THIS TIME, BUT DOES NOT ANSWER QUESTIONS. HE DOES FOLLOW COMMANDS. COLOSTOMY BAG 1/3 FULL. VSS. WILL CONT TO MONITOR.
[2017-02-02] VITALS (88 sets, daily range): BP systolic 72–125; BP diastolic 25–100
--- NOTE | 2017-02-02 01:30 | NUR ---
REPOSITIONED FOR COMFORT. ORAL CARE PROVIDED. NO SIGNS OF DISTRESS NOTED. BP IS TRENDING DOWN. REPOSITIONED CUFF. WILL CONT TO MONITOR BP CLOSELY AND WILL START LEVOPHED IF NEEDED. BED IN LOWEST POSITION. WILL CONT TO MONITOR.
--- NOTE | 2017-02-02 02:50 | NUR ---
INFUSING LEVOPHED @ 2 MCG/KG/MIN. BP 85/47 WITH A MAP OF 54. WILL TITRATE NEEDED.
--- NOTE | 2017-02-02 03:30 | NUR ---
REASSESSMENT COMPLETE. BP STABLE AT THIS TIME. ORAL CARE PROVIDED. REPOSITONED FOR COMFORT. TRIALYSIS CATH IS VERY DIFFICULT TO DRAW FROM FOR AM LABS. FLUSHES EASILY. NO CHANGES NOTED. WILL CONT WITH POC.
--- NOTE | 2017-02-02 05:30 | NUR ---
BP STABLE AT THIS TIME. SUPRA PUBIC CATH HAS SMALL AMOUNT OF BLOODY DRAINAGE FROM IT. CATH CARE PREFORMED. SPONGE PLACED AROUND CATH. NO FURTHER CHANGES AT THIS TIME. WILL CONT TO MONITOR.
[2017-02-02 05:51] LABS: INR 1.34 (0.85-1.17); PROTIME 16.5 SECONDS (11.6-15.0)
[2017-02-02 05:58] LABS: BASOPHILS 0.4 % (0-2); EOSINOPHILS 1.1 % (0-7); HEMOGLOBIN 9.4 g/dL (13.5-17.5); IMMATURE GRANULOCYTES 8.8 % (0-5); MCH 30.4 pg (26.0-34.0); MCHC 34.8 g/dL (31.0-37.0); MCV 87.4 fL (80.0-100.0); MEAN PLATELET VOLUME 10.2 fL (7.4-10.4); MONOCYTES 1.2 % (2-11); NEUTROPHILS 84.5 % (40-80); PLATELET COUNT 180 10x3/uL (130-400); RBC 3.09 10x6/uL (4.20-6.10); RDW 19.6 % (11.5-14.5); WBC 36.7 10x3/uL (4.8-10.8)
--- NOTE | 2017-02-02 07:00 | NUR ---
REPORT RECIEVED FROM OFF GOING NURSE. PT LETHARGIC AND GROANS. ASKED PT IF HE WAS HURTING AND HE GRUNTED "MHHHMM" AND "NUHMM" NO FACIAL GRIMICING OR GAURDING. PT BLE CONRACTED. BUE WEAKNESS NOTED. RUE GENERLIZED EDEMA WITH OPEN WOUNDS TO WRIST. AREAS CLEANSED AND OPSITE APPLIED. EYES JAUNDICED. COLOSTOMY BAG TO LLQ NOTED WITH A PINK MOIST STOMA. AREA BULDING THAT APPEARS TO BE A HERNIA. MD AWARE. SUPRAPUBIC CATH NOTED WITH A SPONG DRESSING WITH A SCANT AMOUNT OF BLOOD. PT HAS HX OF PENECTOMY. CALLED AND STATED PASSWORD AND PT'S CONDITION UPDATE. WBC'S 36,000. ABT HUNG PER ORDRES. NO TEMP. CALL LIGHT IN REACH. WILL CONT POC.
[2017-02-02 07:24] LABS: ALBUMIN 1.4 g/dL (3.4-5.0); ANION GAP 21.1 mmol/L (8-16); BILIRUBIN - TOTAL 8.41 mg/dL (0.2-1.3); CARBON DIOXIDE 23.6 mmol/L (21.0-32.0); CREATININE - SERUM 5.4 mg/dL (0.6-1.3); POTASSIUM - SERUM 3.7 mmol/L (3.5-5.1); PROTEIN - SERUM 5.7 g/dL (6.4-8.2)
--- NOTE | 2017-02-02 09:00 | NUR ---
DRESSING TO COCCYX CHANGED. STAGE 2 PRESSURE ULCER NOTED WITH SEROUS EXUDATE DRAINAGE NOTED ON BED PAD. WOUND CLEANSED AND NEW DRESSING APPLIED. PT REPOSITIONED.
--- NOTE | 2017-02-02 10:41 | NUR ---
Nutrition follow-up: Diet per speech: Regular with chopped meats with gravy PO intake very poor at this time. Pt continues to pocket food per nursing. Ostomy working Pt on Levophed due to pressure problems Wt: 190# RDN will order Nepro with meals to increase kcal, protein intake. Pt is swallwoing liquids with no issues. RDN following.
--- NOTE | 2017-02-02 11:00 | NUR ---
DRESSING TO COCCYX CAME OFF. NEW DRESSING APPLIED. C/D/I. WOUND RED AND MOIST. PO MEDICATION ADMINISTERED WITH APPLE SAUCE AND PT CHEEKED MEDICATION. PO WATER TRIED TO BE GIVEN AND PT REFUSED. AFTER A FEW MINUTES, PT SWALLOW APPLE SAUCE WITH MEDICATION. ST CALLED FOR SWALLOW EVALUATION.
--- NOTE | 2017-02-02 12:15 | NUR ---
UROLOGIST CHANGED SUPRAPUBIC CATHETER. WATCHED HIM ADMINISTER 20ML INTO BULB. NO URINE RETURN.
--- NOTE | 2017-02-02 13:00 | NUR ---
PT OCCASIONALLY MAKE UNCOMPREHENSIVE NOISES BUT HAS NO S/SX OF DISTRESS/DISCOMFORT NOTED. BREATHING NORMAL AND UNLABORED. DENIES PAIN. REPOSITIONED. CALL LIGHT IN REACH. WILL CONT POC
--- NOTE | 2017-02-02 15:39 | NUR ---
WHENEVER REPOSITIONING PT, PT DRESSING ON COCCYX COMING OFF AND BED PAD HAD BLOODY AND YELLOW DRAINAGE NOTED. ALSO BALLON FROM SUPRAPUBIC CATHETER STICKING OUT FROM PTS ANUS. NOTIFIED IMMIDIATELY AND HE STATED THAT HE DOSNT NOT PRODUCE URINE ANYWAYS SO WE SHOULD DC SUPRAPUBIC CATH. IT WAS DC'D, COCCYX CLEANSED AND NEW DRESSING APPLIED AND NEW BED PAD APPLIED TO BED. PT REPOSITIONED. CALL LIGHT IN REACH. WILL CONT POC.
--- NOTE | 2017-02-02 16:45 | NUR ---
ST EVALATED PT. NEW ORDERS FOR PUREE TEXTURE AND NECTAR THICK FLUIDS.
--- NOTE | 2017-02-02 18:50 | NUR ---
DRESSING TO COCCYX C/D/I. PT REPOSITONED. BREATHING NORMAL AND UNLABORED. 0 S/SX OF DISTRESS/DISCOMFORT NOTED. WILL CONT POC.
--- NOTE | 2017-02-02 19:00 | NUR ---
REPORT RECEIVED AND ASSESSMENT COMPLETED. SEE FLOWSHEET FOR FULL DETAILS. PT IS ON NC 2L. SAT 95. RESPIRATIONS SHALLOW, AND DIMMINISHED IN LOWERLOBES BILAT. PT HAS STAGE 2 PRESSURE ULCER ON BOTTOM, DRSG IN PLACE AND INTACT. ON NOREPI DRIP AT 6. WILL MONITOR AND TITRATE NEEDED.
--- NOTE | 2017-02-02 21:00 | NUR ---
2100 MEDS GIVEN. VSS. WILL CONTINUE TO MONITOR
--- NOTE | 2017-02-02 23:00 | NUR ---
REASSESSMENT COMPLETED. SEE FLOWSHEET FOR FULL DETAILS. DRSG ON ULCER CHANGED AND PATIENT REPOSITIONED. BED IN LOW POSITION. NO OTHER CHANGES AT THIS TIME. WILL CONTINUE TO MONITOR
[2017-02-03] VITALS (92 sets, daily range): BP systolic 80–192; BP diastolic 13–146
--- NOTE | 2017-02-03 01:09 | NUR ---
NO CHANGES IN PATIENT STATUS AT THIS TIME. WILL CONTINUE TO MONITOR.
--- NOTE | 2017-02-03 03:43 | NUR ---
REASSESSMENT COMPLETED. RADIOLOGY IN ROOM. PT REPOSITIONED. NO OTHER CHANGES AT THIS TIME. WILL CONTINUE TO MONITOR.
[2017-02-03 04:51] LABS: BASOPHILS 0.4 % (0-2); EOSINOPHILS 1.5 % (0-7); HEMATOCRIT 25.1 % (42.0-54.0); HEMOGLOBIN 8.7 g/dL (13.5-17.5); IMMATURE GRANULOCYTES 7.7 % (0-5); LYMPHOCYTES 5.5 % (15-50); MCH 30.4 pg (26.0-34.0); MCHC 34.7 g/dL (31.0-37.0); MCV 87.8 fL (80.0-100.0); MEAN PLATELET VOLUME 9.9 fL (7.4-10.4); MONOCYTES 2.6 % (2-11); NEUTROPHILS 82.3 % (40-80); PLATELET COUNT 218 10x3/uL (130-400); RBC 2.86 10x6/uL (4.20-6.10); RDW 19.7 % (11.5-14.5); WBC 39.7 10x3/uL (4.8-10.8)
--- NOTE | 2017-02-03 05:00 | NUR ---
INCREASED LEVOPHED TO 7MCG DUE TO DECREASED SYSTOLIC PRESSURE AND MAP. WILL CONTINUE TO MONITOR.
[2017-02-03 05:02] LABS: INR 1.44 (0.85-1.17); PROTIME 17.5 SECONDS (11.6-15.0)
[2017-02-03 05:05] LABS: ALBUMIN 1.3 g/dL (3.4-5.0); ANION GAP 19.5 mmol/L (8-16); BILIRUBIN - TOTAL 7.4 mg/dL (0.2-1.3); CALCIUM 8.2 mg/dL (8.5-10.1); CREATININE - SERUM 5.8 mg/dL (0.6-1.3); MAGNESIUM - SERUM 1.9 mg/dL (1.8-2.4); PHOSPHOROUS 3.5 mg/dL (2.5-4.9); POTASSIUM - SERUM 3.5 mmol/L (3.5-5.1); PROTEIN - SERUM 5.9 g/dL (6.4-8.2)
--- NOTE | 2017-02-03 07:15 | NUR ---
REC'D REPORT AND RESUMED CARE, SLEEPING AROUSABLE TO VERBAL STIMULI, BP 84/45, LEVAPHED GTT IN USE, O2 VIA NC AT 4L, SAT 98%, LEFT UPPER ARM FISTULA, NO BRUIE/THRILL, DRESSING CDI, LEFT IJ TRIALYSIS WITH NS AT 5 CC/HR, LEVAPHED AT 7MCG, AND PROTONIX GTT AT 10 CC/HR, LEFT UPPER ABDOMEN COLOSTOMY IN PLACE, STOMA BEEFY RED, NO RESIUAL TO DRAIN BAG, BODY WITH UPPER AND LOWER EXTREMITY CONTRACTURES, ASSESSMENT COMPLETE PER FLOWSHEET, CALL LIGHT IN REACH, WILL CONTINUE WITH POC
--- NOTE | 2017-02-03 08:30 | NUR ---
AM MEDS GIVEN WITHOUT DIFFICULTY
--- NOTE | 2017-02-03 08:53 | NUR ---
HD BEGAN, LEVAPHED TITRATED TO 10 MCG PER PROTOCAL
--- NOTE | 2017-02-03 09:24 | NUR ---
Nutrition follow-up: Diet changed to puree with nectar thick liquids. RDN reordered Nepro with meals Labs reviewed Noted Levophed increased Recommend starting Nepro @ 20 ml/hr with gradual increase to goal rate of 55 ml/hr if medically feasible if pts po intake remains poor. Pt may not be able to tolerate TF on pressors; if unable to tolerated will need to consider TPN. RDN following.
--- NOTE | 2017-02-03 11:00 | NUR ---
NO ACUTE CHANGE FROM PREVIOUS ASSESSMENT, VSS, CONTINUES ON HD,
--- NOTE | 2017-02-03 11:53 | NUR ---
HD COMPLETED, 1 LITER OFF, VSS
--- NOTE | 2017-02-03 12:07 | NUR ---
Mr. Yun had bedside hemodialysis today via his left IJ Trialysis catheter from 0853 until 1153. Average blood flow was 400 mls/minute. Net fluid removed was 1000 mls. RN had to titrate levophed up a little for b/p support. Dialyzer was yellow in color post treatment. Post vital signs were: B/P: 110/100, HR: 88, Temp: 98.1,Resps: 25.
--- NOTE | 2017-02-03 13:30 | NUR ---
SP HERE FOR F/U EVAL, ASSISTED WITH LUNCH PURREED DIET, TOLERATED MINIMAL WITH COUGHING, 15 % EATEN
--- NOTE | 2017-02-03 15:00 | NUR ---
CONINUES ON LEVAPHED AT 10 MCG, VSS, NO ACUTE CHANGE FROM PREVIOUS ASSESSMENT, REPOSITIONED TO LEFT WITH HEELS BRIDGE, PILLOW BETWEEN KNEES
--- NOTE | 2017-02-03 16:20 | OP ---
PATIENT NAME: ANÍBAL DUARTE MEDICAL RECORD: [id number] :48 LOCATION:[facility] [id number] ADMISSION DATE:01/26/17 SURGEON: REILLY FAITH DO DATE OF OPERATION: 01/28/2017 PROCEDURE: ERCP with stent removal and displaced stent retrieval to appropriate positioning. SCOPE: Olympus video side-viewing duodenoscope and Olympus video gastroscope. MEDICATIONS: The patient was under general anesthesia and was intubated during the examination. ESTIMATED BLOOD LOSS: Minimal. COMPLICATIONS: None. FINDINGS: Informed consent was given. The patient was sedated and was currently and intubated. He was placed in semi-prone position. The 4 viewing endoscope was placed under direct visualization through the mouth to the second portion of the duodenum where the ampulla was encountered. The 10-Anguillan x 7 cm straight plastic stent that was used for actual draining overnight was removed using a snare. The scope was removed with the stent in placed. The side-viewing duodenoscope was then placed through the mouth down to the second portion of the duodenum. Of note, there appeared to be significant esophagitis through the entire esophagus with possible ulcerations. There was a significant amount of food material on debris making visualization of this area extremely difficult. The patient also had a food full of fluids, indicating that his motility is extremely poor. Once the duodenoscope was back down to the ampulla, cannulation was attempted with the snare, so that this could be used as removal device for the impacted stent. The snare could not cannulate the duct, so sphincter tone was used to place a guidewire. After this, a basket was placed over the guidewire and advanced into the duct. After multiple attempts, the basket was able to catch the distal flange on the stent and retract it back into a desirable position where it was effective at draining bile and had a distal portion of the stent within the duodenum itself. At this point, the stent was left in place in the basket and guidewire were removed and the scope was removed from the patient. The patient tolerated this procedure well and there were no complications. IMPRESSION: 1. Removed a 10-Anguillan x 7 cm straight plastic stent and retracted into appropriate position, a 7-Anguillan x 7 straight plastic stent. 2. I have reviewed multiple films personally with radiology. It does appear that there was a calculus and may still be a calculus within the region of the ampulla. This could be involving the pancreatic duct and causing compression on the bile duct, but I have not seen this on my cholangiograms. Yesterday's cholangiogram did reveal some contrast in the pancreatic duct, which showed a dilated pancreatic duct, but there was no obvious stone. Either way, there is good biliary flow through the current stent in its positioning. I did not notice any purulent material draining today, but there is dark bile indicating stasis. The patient's bilirubin did not decrease significantly from yesterday, but his liver enzymes did decreased. Both radiology and myself feel that this is likely more of a chronic process than initially believed and I think this slow decreased in bilirubin reflect this as well. OPERATIVE REPORT [id number] ANÍBAL DUARTE PLAN AND RECOMMENDATIONS: 1. Continue current management including antibiotics and supportive care with pressors as needed. 2. Okay from GI standpoint to wean vent as tolerated. 3. Monitor bilirubin and liver enzymes. 4. Further recommendations will follow trend in enzymes and results of biopsy specimens as well as surgery plans. This plastic stent should be left in place no longer than 3 months and future planning could involve replacement of a new stent versus removal of stent versus other. I will follow along with Dr. Cota and be available as needed. TRANSINT:[id number] Voice Confirmation ID: [id number] DOCUMENT ID: [id number] REILLY FAITH DO at 1620 CC: [id number] DICTATION DATE: 01/28/17 1740 INFORMATION ANALYST: 01/29/17 0045 [facility] [address] [id number]
--- NOTE | 2017-02-03 17:00 | NUR ---
AIR OVERLAY MATTRESS APPLIED TO BED, NOT WORKING, NEW OVERLAY ORDERED
--- NOTE | 2017-02-03 19:00 | NUR ---
REPORT RECEIVED AND ASSESSMENT COMPLETED. SEE FLOWSHEET FOR FULL DETAILS. PT O2 HAS BEEN CHANGED TO 3.5 BY TRE SENIOR MAINTENANCE MACHINIST. NEW DOBHOFF TUBE HAS BEEN PLACED. STILL NO BM TO COLLECT FOR CDT SAMPLE. WILL FOLLOW UP STOOL IS PRODUCED. ORDERS RECEIVED TO START TUBE FEEDINGS NEPRO 20 ML/HR THROUGH NEWLY PLACED TUBE. RADIOLOGY CONTACTED AND KUB TAKEN. AWAITING RESULTS TO START FEEDINGS. PT IS NOW ON 10 MCG LEVOPHED. WILL CONTINUE TO TITRATE NEEDED. WILL MONITOR THROUGHOUT SHIFT.
--- NOTE | 2017-02-03 21:00 | NUR ---
NO VISITORS AT BEDSIDE, WILL CON'T TO MONITOR
--- NOTE | 2017-02-03 23:15 | NUR ---
REASSESSMENT COMPLETE, NO CHANGES NOTED, PT RESTING COMFORTABLY AT THSI TIME, REPOSITIONED FOR COMFORT, WILL CON'T TO MONITOR
[2017-02-04] VITALS (48 sets, daily range): BP systolic 82–178; BP diastolic 37–91
--- NOTE | 2017-02-04 01:29 | NUR ---
REPOSITIONED FOR COMFORT, WILL CON'T TO MONITOR
--- NOTE | 2017-02-04 03:04 | NUR ---
REASSESSMENT COMPLETE, NO CHANGES NOTED, PT AWAKE AT THIS TIME, NO NEEDS NOTED, WILL CON'T TO MONITOR
--- NOTE | 2017-02-04 05:22 | NUR ---
REPOSITIONED FOR COMFORT,
[2017-02-04 05:30] LABS: BASOPHILS 0.3 % (0-2); EOSINOPHILS 1.2 % (0-7); HEMATOCRIT 24.5 % (42.0-54.0); HEMOGLOBIN 8.4 g/dL (13.5-17.5); IMMATURE GRANULOCYTES 4.6 % (0-5); LYMPHOCYTES 6.8 % (15-50); MCH 30.2 pg (26.0-34.0); MCHC 34.3 g/dL (31.0-37.0); MCV 88.1 fL (80.0-100.0); MEAN PLATELET VOLUME 10.2 fL (7.4-10.4); MONOCYTES 4.9 % (2-11); NEUTROPHILS 82.2 % (40-80); PLATELET COUNT 223 10x3/uL (130-400); RBC 2.78 10x6/uL (4.20-6.10); RDW 20.1 % (11.5-14.5)
[2017-02-04 06:04] LABS: ALBUMIN 1.3 g/dL (3.4-5.0); BILIRUBIN - TOTAL 7.1 mg/dL (0.2-1.3); CALCIUM 8.1 mg/dL (8.5-10.1); CARBON DIOXIDE 25.5 mmol/L (21.0-32.0); MAGNESIUM - SERUM 1.9 mg/dL (1.8-2.4); POTASSIUM - SERUM 3.6 mmol/L (3.5-5.1); PROTEIN - SERUM 5.3 g/dL (6.4-8.2)
[2017-02-04 06:17] LABS: ANION GAP 20.1 mmol/L (8-16)
[2017-02-04 06:24] LABS: CREATININE - SERUM 3.6 mg/dL (0.6-1.3); PHOSPHOROUS 2.6 mg/dL (2.5-4.9)
--- NOTE | 2017-02-04 07:15 | NUR ---
REC'D REPORT AND RESUMED CARE, AWAKE, BABALING REPEATED OH ME, SBP 141, LEVAPHED DC'D, DOBHOFF TO RIGHT NARE WITH STYLET IN PLACE, RIGHT WRIST WITH MULTI SKIN TEARS OPEN TO AIR, ZION AREA ESCORIATED, BUTTOCK WITH HEART SHAPED MEPILEX DRESSING, UPPER AND LOWER EXTREMITIES CONTRACTED, LOWER LEFT ABDOMEN WITH COLOSTOMY WITH GREEN SECRETIONS, ASSESSMENT COMPLETED PER FLOWSHEET, O2 VIA NC 4L, SAT 98%, REPOSITIONED UP AND TO LEFT SIDE
--- NOTE | 2017-02-04 09:15 | NUR ---
MEDS GIVEN PER MAR AND PROTOCAL
--- NOTE | 2017-02-04 11:30 | NUR ---
YELLING OUT OH ME, REPOSITIONED TO RIGHT SIDE WITH PILLOW BETWEEN KNEES, HOB 30 DEGREES,
--- NOTE | 2017-02-04 12:00 | NUR ---
ZION AT BEDSIDE, STATUS UPDATED, AWAITING TO SPEAK WITH MD, PATIENT REPOSITIONED UP AND RIGHT SIDE, REPEATIN WORD MY NECK
--- NOTE | 2017-02-04 12:48 | NUR ---
DR MITCHELL AT BEDSIDE, UPDATED STATUS TO , STATES NO OTHER NEEDS AT THIS TIME
--- NOTE | 2017-02-04 15:00 | NUR ---
NO ACUTE CHANGE FROM PREVIOUS, AT BEDSIDE, VOICES NO NEEDS AT THIS TIME
--- NOTE | 2017-02-04 15:30 | NUR ---
PC TO DR RENTERIA, HE SPOKE WITH IN DETAIL RE: SUPRAPUBIC CATHETER AND WHY IT WAS NOT REINSERTED, VERBALIZED UNDERSTANDING, DR HOU HERE FOR EVAL HE SPOKE WITH RE: DISEASE PROCESS, AND CODE STATUS, STATES THAT SHE AND PATIENT HAS SPOKEN ABOUT IT AND HAS AN ADVANCED DIRECTIVE IN PLACE AND CODE STATUS IS DNR
--- NOTE | 2017-02-04 17:30 | NUR ---
PROTONIX GTT DC'D, IVP 40 MG PROTONIX INITIATED PER ORDER, TF INCREASED TO 30 CC/HR PER DR QUINTERO
--- NOTE | 2017-02-04 19:25 | NUR ---
PATIENT IS RESTING QUIETLY ON LEFT SIDE. NO DISTRESS NOTED AT THIS TIME.
--- NOTE | 2017-02-04 21:47 | NUR ---
NEPRO AND TUBE FEEDING CHANGED, INFUSING WELL.
--- NOTE | 2017-02-04 23:00 | NUR ---
PATIENT IS MOANING AND YELLING. REPOSITIONED FOR COMFORT AND OFF EDU PROMINANCE.
[2017-02-05] VITALS (88 sets, daily range): BP systolic 75–148; BP diastolic 36–90
--- NOTE | 2017-02-05 01:49 | NUR ---
PATIENT IS QUIETER AT THIS TIME AND DOES NOT HAVE THE REPEATIVE GARBLED WORDS. BED IN LOW POSITION, AND CALL LIGHT WITHIN REACH.
--- NOTE | 2017-02-05 02:15 | NUR ---
LEVOPHED RESTARTED AT 5MCG/MIN DUE TO SBP CONSISTANTLY BELOW 90 AND MAP <65,
--- NOTE | 2017-02-05 03:30 | NUR ---
PATIENT IS RESTING QUIETLY AT THIS TIME. PATIENT BED IS IN LOW POSITION.
[2017-02-05 04:32] LABS: BASOPHILS 0.1 % (0-2); EOSINOPHILS 1.3 % (0-7); HEMATOCRIT 25.3 % (42.0-54.0); HEMOGLOBIN 8.5 g/dL (13.5-17.5); IMMATURE GRANULOCYTES 2.9 % (0-5); LYMPHOCYTES 5.7 % (15-50); MCH 29.9 pg (26.0-34.0); MCHC 33.6 g/dL (31.0-37.0); MCV 89.1 fL (80.0-100.0); MEAN PLATELET VOLUME 10.1 fL (7.4-10.4); MONOCYTES 5.2 % (2-11); NEUTROPHILS 84.8 % (40-80); PLATELET COUNT 207 10x3/uL (130-400); RBC 2.84 10x6/uL (4.20-6.10); RDW 20.5 % (11.5-14.5); WBC 38.2 10x3/uL (4.8-10.8)
--- NOTE | 2017-02-05 04:45 | NUR ---
PATIENT BATHED AND LINES CHANGED.
[2017-02-05 04:48] LABS: ALBUMIN 1.3 g/dL (3.4-5.0); BILIRUBIN - TOTAL 7.81 mg/dL (0.2-1.3); CALCIUM 8.3 mg/dL (8.5-10.1); CARBON DIOXIDE 25.2 mmol/L (21.0-32.0); CREATININE - SERUM 4.4 mg/dL (0.6-1.3); POTASSIUM - SERUM 3.2 mmol/L (3.5-5.1); PROTEIN - SERUM 6.2 g/dL (6.4-8.2)
--- NOTE | 2017-02-05 05:45 | NUR ---
PATIENT IS NOT MOANING AT THIS TIME. V/S WITHIN NORMAL LIMITS.
--- NOTE | 2017-02-05 07:15 | NUR ---
REPORT RECD PT CARE ASSUMED. PT DISORIENTED/ INCOMPREHENSIBLE SOUNDS. S1S2 NOTED, SR PER CM. PT HAS NC @ 3.5lL. SEE SHIFT ASSESSMENT FOR DETAILS. VSS.
--- NOTE | 2017-02-05 09:03 | NUR ---
PT REPOSITIONED PER PROTOCOL, NO DISTRESS NOTED. VSS.
--- NOTE | 2017-02-05 10:00 | NUR ---
PT CALLED ON PHONE, UPDATE PROVIDED.
--- NOTE | 2017-02-05 10:18 | NUR ---
Nutrition follow-up: Nepro infusing @ 30 ml/hr via dobhoff tube; pt tolerating at this time. Labs reviewed; LFT's trending up Wt: 201# Recommend increasing TF to goal rate of 55 ml/hr RDN following.
--- NOTE | 2017-02-05 12:00 | NUR ---
PT REPOSITIONED, SUPRAPUBIC AREA CLEANSED. WILL HAVE WOUND NURSE ASSESS.
--- NOTE | 2017-02-05 12:26 | NUR ---
Wound care consult: Old suprapubic cath site. There is a 1cm x 2cm open area. The tissue surrounding looks pink and healthy. There is no odor. Right wrist has a 2cm x 2cm area with 3 small open areas. Small serous drainage noted. Cleansed and covered with MEpilex AG. Left lateral heel has an intact brown blister 2cm x 5cm. Covered with mepilex border to protect. Wound care will continue to monitor.
--- NOTE | 2017-02-05 13:48 | NUR ---
Dialysis Coordinator: ANGY [facility] Thu/Thu/Fri @ 10:45. Medical records to home unit. SIVA YOUSSEF.
--- NOTE | 2017-02-05 15:00 | NUR ---
PT TO CT AT THIS TIME. VSS.
--- NOTE | 2017-02-05 17:00 | NUR ---
ALL DRESSINGS APPLIED AND TO APPROPRIATE AREAS PER WOUND CARE NURSE. BOTTOM ASSESSED, SEE WOUND NOTE FOR DETAILS. PT REPOSITIONED AND APPEARS TO BE IN NO DISTRESS. VSS.
--- NOTE | 2017-02-05 19:00 | NUR ---
REPORT RECEIVED AND ASSESSMENT COMPLETED. DOBHOFF TUBE CLOGGED AT THIS TIME. UNABLE TO FLUSH. TROUBLE SHOT TUBE WITH NO SUCCESS. NEW TUBE PLACED, AND KUB TAKEN BY RADIOLOGY. AWAITING RESULTS TO RESTART FEEDINGS. SEE ASSESSMENT FLOWSHEET FOR FULL DETAILS. VSS. WILL MONITOR.
--- NOTE | 2017-02-05 21:00 | NUR ---
2100 MEDS GIVEN. KUB RESULTS SHOWED PROPER PLACEMENT FOR DHT. WILL CONTINUE FEEDINGS AT THIS TIME.
--- NOTE | 2017-02-05 23:00 | NUR ---
REASSESSMENT COMPLETED. SEE FLOWSHEET FOR FULL DETAILS. VSS. NO OTHER CHANGES IN STATUS AT THIS TIME. WILL CONTINUE TO MONITOR
[2017-02-06] VITALS (94 sets, daily range): BP systolic 73–116; BP diastolic 40–95
--- NOTE | 2017-02-06 01:00 | NUR ---
COMPLETE BED BATH AND LINEN CHANGE PERFORMED. NO OTHER CHANGES IN STATUS AT THIS TIME. VSS. WILL CONTINUE TO MONITOR
--- NOTE | 2017-02-06 03:00 | NUR ---
REASSESSMENT COMPLETED. SEE FLOWSHEET FOR FULL DETAILS. NO OTHER CHANGES AT THIS TIME. WILL CONTINUE TO MONITOR
--- NOTE | 2017-02-06 05:00 | NUR ---
PT SLEEPING COMFORTABLY. LEVOPHED TITRATED TO 4MCG/KG/MIN. NO OTHER CHANGES AT THIS TIME. VSS. WILL CONTINUE TO MONITOR
[2017-02-06 06:08] LABS: BASOPHILS 0.2 % (0-2); EOSINOPHILS 1.2 % (0-7); HEMATOCRIT 24.3 % (42.0-54.0); IMMATURE GRANULOCYTES 2.3 % (0-5); LYMPHOCYTES 7.4 % (15-50); MCH 29.2 pg (26.0-34.0); MCHC 32.9 g/dL (31.0-37.0); MCV 88.7 fL (80.0-100.0); MEAN PLATELET VOLUME 9.9 fL (7.4-10.4); MONOCYTES 7.6 % (2-11); NEUTROPHILS 81.3 % (40-80); PLATELET COUNT 194 10x3/uL (130-400); RBC 2.74 10x6/uL (4.20-6.10); RDW 20.6 % (11.5-14.5); WBC 30.9 10x3/uL (4.8-10.8)
[2017-02-06 06:26] LABS: ALBUMIN 1.2 g/dL (3.4-5.0); BILIRUBIN - TOTAL 7.5 mg/dL (0.2-1.3); CALCIUM 8.2 mg/dL (8.5-10.1); CARBON DIOXIDE 31.4 mmol/L (21.0-32.0); PROTEIN - SERUM 5.8 g/dL (6.4-8.2)
[2017-02-06 06:56] LABS: ANION GAP 9.6 mmol/L (8-16); CREATININE - SERUM 3.1 mg/dL (0.6-1.3)
--- NOTE | 2017-02-06 07:35 | NUR ---
DOPHOFF PLACEMENT CHECKED WITH AIR BOLUS. GURGLING NOTED OVER EPIGASTRIC REGION. 35ML OF RESIDUAL FROM DOPHOFF REPLACED RESIDUAL VIA DOPHOFF. MED GIVEN AND FLUSHED WITH H2O.
--- NOTE | 2017-02-06 08:17 | NUR ---
ROMI SILVEIRA APN HERE IN TO SEE PATIENT.
--- NOTE | 2017-02-06 09:05 | NUR ---
DR. RENTERIA IN TO SEE PATIENT.
--- NOTE | 2017-02-06 09:58 | NUR ---
DR. MITCHELL IN TO SEE PATIENT.
--- NOTE | 2017-02-06 13:12 | NUR ---
SPOKE WITH ABOUT CT GUIDED LIVER ABCESS ASPIRATION WITH MODERATE SEDATION. PATIENT'S VERBALIZED UNDERSTANDING, AND CONSENT FORMS SIGNED.
[2017-02-06 14:30] LABS: INR 1.59 (0.85-1.17); PROTIME 18.9 SECONDS (11.6-15.0)
[2017-02-06 14:31] LABS: APTT 61.4 SECONDS (22.8-39.4)
--- NOTE | 2017-02-06 20:00 | NUR ---
RECEIVED CARE OF PT, ASSESSMENT PER FLOWSHEET. PT MOANING IN BED, DOES NOT RESPOND TO QUESTIONS, DOES WITHDRAW FROM PAINFUL STIMULI, ON 4L O2 VIA NC, LLQ COLOSTOMY PRESENT WITH GREENISH STOOL IN BAG, STOMA REDDISH PINK, DOBHOFF INFUSING NEPRO AT 30CC/HR, RESIDUAL NOTED OF 10CC, PPP, 2+ EDEMA NOTED TO RUE WITH GENERALIZED EDEMA NOTED TO ALL OTHERS, HR SR AT A RATE OF 98 ON CM, LEVOPHED INFUSING PER FLOWSHEET VIA PUMP.
--- NOTE | 2017-02-06 21:10 | NUR ---
NO VISITORS PRESENT AT THIS TIME, VSS, CONT TO MONITOR.
--- NOTE | 2017-02-06 22:15 | NUR ---
DR QUINTERO HERE, UPDATE PROVIDED, ORDERS RECEIVED.
--- NOTE | 2017-02-06 23:15 | NUR ---
REASSESSMENT PER FLOWSHEET, NO ACUTE CHANGES NOTED AT THIS TIME, WILL CONT POC.
[2017-02-07] VITALS (84 sets, daily range): BP systolic 82–133; BP diastolic 41–965
--- NOTE | 2017-02-07 01:50 | NUR ---
LEVOPHED GTT INCREASED TO 6 MCG PER BP PARAMETERS, HR SR, WILL MONITOR.
--- NOTE | 2017-02-07 03:00 | NUR ---
REASSESSMENT PER FLOWSHEET, NO ACUTE CHANGES NOTED, VSS, CONT POC.
--- NOTE | 2017-02-07 06:10 | NUR ---
NO VISITORS PRESENT AT THIS TIME, LAB AT BEDSIDE ATTEMPTING AM DRAW, WILL CONT TO MONITOR.
[2017-02-07 06:46] LABS: BASOPHILS 0.3 % (0-2); EOSINOPHILS 1.1 % (0-7); HEMATOCRIT 25.2 % (42.0-54.0); HEMOGLOBIN 8.5 g/dL (13.5-17.5); IMMATURE GRANULOCYTES 2.9 % (0-5); LYMPHOCYTES 10.2 % (15-50); MCH 30.1 pg (26.0-34.0); MCHC 33.7 g/dL (31.0-37.0); MCV 89.4 fL (80.0-100.0); MEAN PLATELET VOLUME 10.1 fL (7.4-10.4); MONOCYTES 6.9 % (2-11); NEUTROPHILS 78.6 % (40-80); PLATELET COUNT 195 10x3/uL (130-400); RBC 2.82 10x6/uL (4.20-6.10); RDW 20.7 % (11.5-14.5); WBC 23.5 10x3/uL (4.8-10.8)
[2017-02-07 06:51] LABS: ALBUMIN 1.2 g/dL (3.4-5.0); ANION GAP 13.2 mmol/L (8-16); BILIRUBIN - TOTAL 7.8 mg/dL (0.2-1.3); CALCIUM 8.4 mg/dL (8.5-10.1); CARBON DIOXIDE 27.9 mmol/L (21.0-32.0); INR 1.48 (0.85-1.17); MAGNESIUM - SERUM 1.8 mg/dL (1.8-2.4); POTASSIUM - SERUM 3.1 mmol/L (3.5-5.1); PROTEIN - SERUM 6.2 g/dL (6.4-8.2); PROTIME 17.8 SECONDS (11.6-15.0)
[2017-02-07 06:54] LABS: CREATININE - SERUM 3.9 mg/dL (0.6-1.3); PHOSPHOROUS 1.2 mg/dL (2.5-4.9)
--- NOTE | 2017-02-07 07:07 | NUR ---
DR HOU NOTIFIED OF PHOSPHORUS LEVEL OF 1.2, ORDERS RECEIVED.
--- NOTE | 2017-02-07 07:30 | NUR ---
REC'D REPORT FROM OUT GOING RN - PT RESTING WITH EYES CLOSED - RESPIRATIONS REG RATE AND RHTHYM ELECTROLYTE PROTOCOL IN PLACE - CPOC
--- NOTE | 2017-02-07 08:00 | NUR ---
ROMI KAUR AT BEDSIDE FOR ASSESSMENT - ORDERS TO CHANGE TUBE FEED TO JEVITY 1.5 AND TO STOP ELECTORLYTE PROTOCOL PT IS ON DIALYSIS TO COVER ELECTROLYTE NEEDS. WILL D/C ORDERS
--- NOTE | 2017-02-07 08:30 | NUR ---
ASSESSMENT COMPLETE - PT MOANING WITH OR WITHOUT TACTILE STIMULI - CPOC
--- NOTE | 2017-02-07 10:00 | NUR ---
TITRATE LEVOFED PER PROTOCOL - VSS - CPOC
--- NOTE | 2017-02-07 13:00 | NUR ---
CALLED HEEL ROOM SUPERVISOR - REQUSTED HEART PAD FOR PT'S BUTTOCKS - AWAITING ITEM
--- NOTE | 2017-02-07 13:27 | NUR ---
CHG TUBE FEEDING TO JEVITY 1.5 PER ORDER -
--- NOTE | 2017-02-07 14:30 | NUR ---
DIALYSIS NURSE AT BEDSIDE PER MD ORDERED - VSS - CPOC
--- NOTE | 2017-02-07 16:16 | NUR ---
I&O COMPLETED - INCLUDINED 389ML OFF PER DIALYSIS NURSE - PT'S VSS -
--- NOTE | 2017-02-07 17:00 | NUR ---
DAILYSIS NURSE COMPLETE AT 1700 - REMOVED ADDITINAL 361 MLs. WILL DOCUMENT IN I&O, CPOC
--- NOTE | 2017-02-07 18:00 | NUR ---
MEDICATIONS GIVEN - ORAL CARE WITH YELLOW ORAL EXUDATE - DR. MITCHELL AND ROMI KAUR AWARE
--- NOTE | 2017-02-07 19:15 | NUR ---
RESUMED CARE OF PT, ASSESSMENT PER FLOWSHEET. PT DISORIENTED, DOES NOT FOLLOW COMMANDS OR ANSWER QUESTIONS, ONLY MOANS IN RESPONSE. HR SR ON CM, POSITIONED FOR COMFORT.
--- NOTE | 2017-02-07 21:10 | NUR ---
NO VISITORS PRESENT AT THIS TIME, VSS, CONT POC.
--- NOTE | 2017-02-07 23:00 | NUR ---
REASSESSMENT PER FLOWSHEET, HR SR ON CM AT A RATE OF 90, CONT POC.
[2017-02-08] VITALS (69 sets, daily range): BP systolic 89–129; BP diastolic 33–96
--- NOTE | 2017-02-08 01:30 | NUR ---
COMPLETE BATH AND LINEN CHANGE DONE, ORAL CARE PROVIDED, SUPPORTED WITH PILLOWS.
--- NOTE | 2017-02-08 03:00 | NUR ---
REASSESSMENT PER FLOWSHEET, HR SR ON CM, VSS.
--- NOTE | 2017-02-08 05:45 | NUR ---
NO VISITORS PRESENT AT THIS TIME, LEVOPHED GTT REMAINS AT 6 MCG, WILL CONT POC.
[2017-02-08 06:15] LABS: BASOPHILS 0.2 % (0-2); EOSINOPHILS 1.2 % (0-7); HEMATOCRIT 24.9 % (42.0-54.0); HEMOGLOBIN 8.4 g/dL (13.5-17.5); IMMATURE GRANULOCYTES 2.3 % (0-5); LYMPHOCYTES 8.9 % (15-50); MCH 30.2 pg (26.0-34.0); MCHC 33.7 g/dL (31.0-37.0); MCV 89.6 fL (80.0-100.0); MEAN PLATELET VOLUME 10.7 fL (7.4-10.4); MONOCYTES 8.1 % (2-11); NEUTROPHILS 79.3 % (40-80); PLATELET COUNT 183 10x3/uL (130-400); RBC 2.78 10x6/uL (4.20-6.10); RDW 20.7 % (11.5-14.5); WBC 21.2 10x3/uL (4.8-10.8)
[2017-02-08 06:36] LABS: ALBUMIN 1.2 g/dL (3.4-5.0); ANION GAP 11.3 mmol/L (8-16); BILIRUBIN - TOTAL 8.11 mg/dL (0.2-1.3); CALCIUM 8.5 mg/dL (8.5-10.1); CARBON DIOXIDE 31.2 mmol/L (21.0-32.0); POTASSIUM - SERUM 3.5 mmol/L (3.5-5.1); PROTEIN - SERUM 6.6 g/dL (6.4-8.2)
[2017-02-08 06:37] LABS: CREATININE - SERUM 2.9 mg/dL (0.6-1.3)
--- NOTE | 2017-02-08 10:51 | NUR ---
0700 RECEIVED PT LAYING IN BED EYES OPEN, DOES NOT FOLLOW COMMANDS AND DOES NOT ANSWER QUESTIONS APPROP. SEE INIITAL ASSESMSNT. 0800 MEDS GIVEN, NEW TUBE FEED HUNG, PT SUCTIONED MODERATE AMOUT OF SECRETIONS FROM MOUTH AFTER PT COUGHED. 0900 PT REPOSITONED AND TURNED IN BED, NO DISTRESS NOTED. 1000 THERAPY IN UNIT TO COMPLETE ROM ON PT, NO DISTRESS NOTED.
--- NOTE | 2017-02-08 15:39 | NUR ---
1430 RECEIVED CRITICAL LOW PHOSHOROUS LEVEL 1.2, PT ON ELECTROLYTE PROTOCOL,1ST DOES GAVE AT 1430, UNABLE TO SCAN DUE TO PACKAGE WITHOUT LABEL, CALLED [facility] FOR LABEL.
--- NOTE | 2017-02-08 19:15 | NUR ---
RESUMED CARE OF PT, ASSESSMENT PER FLOWSHEET. PT ORIENTED TO SELF ONLY, GARBLED SPEECH NOTED, MOSTLY MOANS OR STATES "OH ME". HR SR ON CM, CRACKLES AUSCULTATED BILATERALLY WITH DIMINISHED BASES, PPP, POSITIONED FOR COMFORT AND ORAL CARE PROVIDED.
--- NOTE | 2017-02-08 21:10 | NUR ---
NO VISITORS PRESENT AT THIS TIME, ORAL CARE AND SUCTIONING PROVIDED, SR ON CM.
--- NOTE | 2017-02-08 23:15 | NUR ---
REASSESSMENT PER FLOWSHEET, HR SR ON MONITOR, ORAL CARE PROVIDED, POSITIONED FOR COMFORT.
[2017-02-09] VITALS (36 sets, daily range): BP systolic 62–149; BP diastolic 36–86
--- NOTE | 2017-02-09 00:44 | NUR ---
PT REPOSITIONED FOR COMFORT, SUPPORTED WITH PILLOWS, HR SR ON CM, BREATHING TREATMENT PER RT.
--- NOTE | 2017-02-09 03:15 | NUR ---
REASSESSMENT PER FLOWSHEET, NO ACUTE CHANGES NOTED AT THIS TIME. ORAL CARE PROVIDED, HR SR ON CM, CONT POC.
[2017-02-09 03:58] LABS: BASOPHILS 0.4 % (0-2); EOSINOPHILS 1.2 % (0-7); HEMATOCRIT 23.5 % (42.0-54.0); HEMOGLOBIN 7.7 g/dL (13.5-17.5); IMMATURE GRANULOCYTES 1.8 % (0-5); LYMPHOCYTES 9.6 % (15-50); MCH 29.7 pg (26.0-34.0); MCHC 32.8 g/dL (31.0-37.0); MCV 90.7 fL (80.0-100.0); MEAN PLATELET VOLUME 11.2 fL (7.4-10.4); MONOCYTES 7.5 % (2-11); NEUTROPHILS 79.5 % (40-80); PLATELET COUNT 187 10x3/uL (130-400); RBC 2.59 10x6/uL (4.20-6.10); RDW 20.7 % (11.5-14.5); WBC 18.4 10x3/uL (4.8-10.8)
[2017-02-09 04:19] LABS: ALBUMIN 1.2 g/dL (3.4-5.0); BILIRUBIN - TOTAL 8.4 mg/dL (0.2-1.3); CALCIUM 8.1 mg/dL (8.5-10.1); CARBON DIOXIDE 29.1 mmol/L (21.0-32.0); CREATININE - SERUM 3.6 mg/dL (0.6-1.3); PROTEIN - SERUM 5.5 g/dL (6.4-8.2)
[2017-02-09 04:20] LABS: PHOSPHOROUS 1.1 mg/dL (2.5-4.9); POTASSIUM - SERUM 4.1 mmol/L (3.5-5.1)
--- NOTE | 2017-02-09 05:25 | NUR ---
PT POSITIONED FOR COMFORT, ORAL CARE PROVIDED-THICK DRUMMOND SPUTUM NOTED, POSITIONED FOR COMFORT SUPPORTED WITH PILLOWS, WILL MONITOR.
--- NOTE | 2017-02-09 07:00 | NUR ---
REPORT RECEIVED. ASSUMED CARE OF PATIENT. ASSESSMENT COMPLETE. PT NOT ORIENTED. DOES NOT RESPOND TO COMMANDS. PT HAS CONTRACTURES UPPER AND LOWER EXTREMETIES. AIR OVERLAY BED. SCD'S ON. 3L NC.
[2017-02-09 09:27] LABS: % SATURATION 158 % (15-55); IRON 68 ug/dl (35-150); TOTAL IRON BIND CAPACITY 43 ug/dl (260-445)
--- NOTE | 2017-02-09 09:30 | NUR ---
MORNING MEDICATIONS GIVEN.
--- NOTE | 2017-02-09 10:03 | NUR ---
Nutrition follow-up: TF changed to Jevity 1.5 charito @ 30 ml/hr from Nepro due to low PO4 per renal COTTON BAG CLIPPER Pt extubated Labs reviewed Pt now NPO for procedure RDN following.
--- NOTE | 2017-02-09 12:00 | NUR ---
AT BEDSIDE AT THIS TIME. UPDATE GIVEN.
[2017-02-09 13:41] LABS: BASOPHILS 0.4 % (0-2); HEMATOCRIT 22.5 % (42.0-54.0); IMMATURE GRANULOCYTES 1.4 % (0-5); LYMPHOCYTES 11.7 % (15-50); MCH 30.1 pg (26.0-34.0); MCHC 32.9 g/dL (31.0-37.0); MCV 91.5 fL (80.0-100.0); MEAN PLATELET VOLUME 10.8 fL (7.4-10.4); MONOCYTES 9.7 % (2-11); NEUTROPHILS 75.8 % (40-80); PLATELET COUNT 153 10x3/uL (130-400); RBC 2.46 10x6/uL (4.20-6.10); RDW 20.9 % (11.5-14.5); WBC 17.8 10x3/uL (4.8-10.8)
[2017-02-09 13:50] LABS: HEMOGLOBIN 7.4 g/dL (13.5-17.5)
--- NOTE | 2017-02-09 13:53 | NUR ---
MARCEL WITH LAB CALLED WITH CRITICAL HEMOGLOBIN OF 7.4. DROPPED FROM 7.7. PT HAS ORDERS FOR 2 PRBC TO BE GIVEN ON DIALYSIS TOMORROW.
--- NOTE | 2017-02-09 14:23 | NUR ---
PT OFF OF UNIT TO CT
--- NOTE | 2017-02-09 15:13 | NUR ---
PT RETURNED TO ROOM VIA BED FROM CT. HAS RIGHT UPPER QUAD INCISION SITE WITH CLEAN DRESSING INTACT. JUST BELOW DRESSING IS SECOND INCISION SITE WITH DRAINAGE TUBE INSERTED. GREEN/BLACK DRAINAGE NOTED IN COLLECTION BAG.
--- NOTE | 2017-02-09 17:03 | NUR ---
TUBE FEEDINGS RESTARTED. AT PREVIOUS RATE OF 30ML/HR. DOBBHOFF FLUSHED WITH EASE.
--- NOTE | 2017-02-09 17:15 | NUR ---
WOUND CLEANED WITH CLEANSER AND MEPILEX DRESSING APPLIED TO BUTTOCKS. WOUND AT RIGHT WRIST AND FOREARM CLEANED WITH CLEANSER AND MEPILEX DRESSINGS APPLIED. LEFT HEEL DRESSING REMOVED AND SKIN CLEANED AND GAUZE DRESSING APPLIED. PT REPOSITIONED AND SUPPORTED WITH PILLOWS.
--- NOTE | 2017-02-09 19:15 | NUR ---
ASSESSMENT COMPLETE. S1S2. NSR SHOWING ON MONITOR. BP HYPOTENSIVE; MONITORING CLOSELY. BILI DRAIN TO RIGHT ABD; GREEN DRAINAGE. COLOSTOMY ON LEFT ABD. RADIAL PULSES PALP; PEDAL PULSES WEAK. PRESSURE ULCER STAGE II ON BUTTOCKS/COCCYX. CONTRACTURES NOTED TO LEFT UPPER EXTREMITY AND BILATERAL LOWER EXTREMITIES. DRESSING IN PLACE X2 TO LEFT ABD FROM PREVIOUS PUNCTURES. PERRLA. PT CONFUSED X4; GARBLE SPEECH; GROANS. DOES NOT FOLLOW COMMANDS.
--- NOTE | 2017-02-09 21:30 | NUR ---
NO FAMILY AT VISITATION.
--- NOTE | 2017-02-09 22:29 | NUR ---
LEVOPHED STARTED. SEE EMAR AND VITAL SIGNS FOR DETAILS.
--- NOTE | 2017-02-09 22:40 | NUR ---
FLUSHED PT BILI DRAIN ON LEFT ABD; PER ORDERS.
--- NOTE | 2017-02-09 23:20 | NUR ---
REASSESSMENT COMPLETE. NO ACUTE CHANGES FROM PREVIOUS ASSESSMENT. SEE FLOW SHEET FOR DETAILS.
[2017-02-10] VITALS (96 sets, daily range): BP systolic 74–130; BP diastolic 41–77
--- NOTE | 2017-02-10 01:16 | NUR ---
PT RESTING; EYES CLOSED. VSS. MONITORING BP CLOSELY. WILL CONTINUE TO MONITOR.
--- NOTE | 2017-02-10 04:10 | NUR ---
REASSESSMENT COMPLETE. NO ACUTE CHANGES FROM PREVIOUS ASSESSMENT. MONITORING BP CLOSELY.
[2017-02-10 04:26] LABS: BASOPHILS 0.3 % (0-2); EOSINOPHILS 1.5 % (0-7); HEMATOCRIT 24.9 % (42.0-54.0); HEMOGLOBIN 8.3 g/dL (13.5-17.5); IMMATURE GRANULOCYTES 2.1 % (0-5); LYMPHOCYTES 9.9 % (15-50); MCH 30.2 pg (26.0-34.0); MCHC 33.3 g/dL (31.0-37.0); MCV 90.5 fL (80.0-100.0); MEAN PLATELET VOLUME 11.6 fL (7.4-10.4); MONOCYTES 7.5 % (2-11); NEUTROPHILS 78.7 % (40-80); PLATELET COUNT 144 10x3/uL (130-400); RBC 2.75 10x6/uL (4.20-6.10); RDW 20.9 % (11.5-14.5); WBC 18.4 10x3/uL (4.8-10.8)
[2017-02-10 04:43] LABS: ALBUMIN 1.1 g/dL (3.4-5.0); ANION GAP 17.2 mmol/L (8-16); BILIRUBIN - TOTAL 8.09 mg/dL (0.2-1.3); CALCIUM 8.4 mg/dL (8.5-10.1); CARBON DIOXIDE 25.9 mmol/L (21.0-32.0); CREATININE - SERUM 4.2 mg/dL (0.6-1.3); MAGNESIUM - SERUM 1.7 mg/dL (1.8-2.4); PHOSPHOROUS 2.4 mg/dL (2.5-4.9); POTASSIUM - SERUM 4.1 mmol/L (3.5-5.1); PROTEIN - SERUM 6.3 g/dL (6.4-8.2)
--- NOTE | 2017-02-10 07:00 | NUR ---
PT REPORT REC'D, PT CARE ASSUMED. PT CONFUSED, GARBLED WORDS. VSS, ON LEVOPHED GTT, SEE IV FLOW SHEET. DRESSING CDI. DOBBHOFF TO LEFT NARE WITH JEVITY INFUSING AT 30CC/HR. RIGHT WRIST DRESSING CDI, REDDNESS NOTED TO PERIAREA, BUTTOCK/COCCYX DRESSING CDI, SCANT PINK TINGED DRAINAGE. LEFT HEEL BLISTER, SKIN INTACT, FOOT PROPPED WITH PILLOW. LEFT LOWER ABDOMEN COLSOTOMY WITH GREEN BM RETURN. RIGHT ABDOMEN BILI DRAIN TO GRAVITY WITH GREEN DRAINAGE. SHIFT ASSESSMENT COMPLETED, SEE FLOW SHEET. ROOM FREE OF CLUTTER, BED ALARM ACTIVE, CLOSE TO NURSES STATION, WILL CONTINUE TO MONITOR PT.
--- NOTE | 2017-02-10 08:49 | NUR ---
LEXA HIDALGO WITH URBANO AT THE BEDSIDE SETTING UP, VSS, INFORMED OF 2UNITS PRBC'S ORDERED TO BE GIVEN DURING DIALYSIS.
--- NOTE | 2017-02-10 09:00 | NUR ---
REPOSITIONED PT, PROPPED WITH PILLOWS, VSS, WILL CONTINUE TO MONITOR PT.
--- NOTE | 2017-02-10 11:00 | NUR ---
REPOSITIONED PT, PROPPED WITH PILLOWS, VSS, REASSESSMENT COMPLETED, SEE FLOW SHEET. ROOM FREE OF CLUTTER, BED ALARM ACTIVE, WILL CONTINUE TO MONITOR PT.
--- NOTE | 2017-02-10 12:48 | NUR ---
Mr. Yun had bedside hemodialysis today via his left IJ trialysis catheter from 930 until 1230. Average blood flow was 400 mls/minute. Transfused two units of prbc's. I was only able to remove a net of 1421 mls as well as the 700 mls from the prbc's. B/P was too unstable during treatment. Levophed had to be titrated up several times and b/p was unstable. Post vital signs were: B/P: 92/70, HR: 87, Temp:97.4, Resps:30.
--- NOTE | 2017-02-10 14:15 | NUR ---
DR. QUINTERO AT THE BEDSIDE
--- NOTE | 2017-02-10 15:00 | NUR ---
REASSESSMENT COMPLETED, SEE FLOW SHEET, VSS, BED ALARM ACTIVE, VSS, WILL CONTINUE TO MONITOR PT.
--- NOTE | 2017-02-10 15:51 | NUR ---
COMPLETE BED BATH AND LINEN CHANGE, PT TOLERATED WELL, REPOSITIONED PT, PROPPED WITH PILLOWS, VSS, WILL CONTINUE TO MONITOR PT.
--- NOTE | 2017-02-10 18:21 | NUR ---
REPOSITIONED PT, PROPPED WITH PILLOWS, VSS, WILL CONTINUE TO MONITOR PT.
--- NOTE | 2017-02-10 19:20 | NUR ---
ASSESSMENT COMPLETE. NSR SHOWING ON MONITOR. LEVOPHED INFUSING AT 10MCG/KG/MIN. PT CONFUSED/DISORIENTED X4. CONTRACTURES NOTED TO RIGHT ARM AND BILATERALLY LEGS. RADIAL PULSES +2; PEDAL PULSES +1. BILI DRAIN TO RIGHT UPPER; GREEN CONTENT IN COLLECTION BAG. PERRLA. LEFT ARM FISTULA; NON WORKING. PRESSURE ULCER STAGE 2 ON COCCYX/BUTTOCKS. SEE FLOW SHEET FOR FURTHER DETAILS.
--- NOTE | 2017-02-10 21:30 | NUR ---
NO FAMILY OR VISITORS DURING VISITATION.
--- NOTE | 2017-02-10 23:30 | NUR ---
REASSESSMENT COMPLETE. NO ACUTE CHANGES FROM PREVIOUS ASSESSMENT. REMAINS ON LEVOPHED. MONITORING BP CLOSELY.
[2017-02-11] VITALS (45 sets, daily range): BP systolic 49–136; BP diastolic 25–97
--- NOTE | 2017-02-11 00:35 | NUR ---
TUBE FEEDING SET CHANGED. DOBBHOFF LINE FLUSHED.
--- NOTE | 2017-02-11 02:13 | NUR ---
PT RESTING; EYES CLOSED. MONITORING BP CLOSELY.
--- NOTE | 2017-02-11 03:15 | NUR ---
REASSESSMENT COMPLETE. NO ACUTE CHANGES NOTED. PT REMAINS ON LEVOPHED. RATE CHANGE TO 9MCG/KG/MIN. PT HAS SLIGHT COUGH WITH SPIT UP OF TUBE FEEDING. RESIDUAL CHECKED WITH 400ML RESIDUAL. JEVITY PLACED ON HOLD.
[2017-02-11 04:22] LABS: HEMATOCRIT 29.4 % (42.0-54.0); MCHC 34.4 g/dL (31.0-37.0)
[2017-02-11 04:23] LABS: BASOPHILS 0.3 % (0-2); EOSINOPHILS 1.8 % (0-7); IMMATURE GRANULOCYTES 2.8 % (0-5); LYMPHOCYTES 11.9 % (15-50); MEAN PLATELET VOLUME 11.4 fL (7.4-10.4); MONOCYTES 9.7 % (2-11); NEUTROPHILS 73.5 % (40-80); PLATELET COUNT 142 10x3/uL (130-400)
[2017-02-11 04:32] LABS: HEMOGLOBIN 10.1 g/dL (13.5-17.5); MCV 87.2 fL (80.0-100.0); RBC 3.37 10x6/uL (4.20-6.10); WBC 13.1 10x3/uL (4.8-10.8)
[2017-02-11 04:52] LABS: ALBUMIN 1.1 g/dL (3.4-5.0); ANION GAP 11.1 mmol/L (8-16); BILIRUBIN - TOTAL 6.54 mg/dL (0.2-1.3); CALCIUM 8.1 mg/dL (8.5-10.1); MAGNESIUM - SERUM 2.2 mg/dL (1.8-2.4); PHOSPHOROUS 1.9 mg/dL (2.5-4.9); POTASSIUM - SERUM 3.1 mmol/L (3.5-5.1); PROTEIN - SERUM 6.4 g/dL (6.4-8.2)
--- NOTE | 2017-02-11 06:13 | NUR ---
ORAL CARE PROVIDED. ORAL MUCOSA DRY. TUBE FEEDING REMAINS OFF. PT SPITTING UP FEEDING OCCASIONALLY. SUCTION AT BEDSIDE. HOB ELEVATED 30 DEGREES. WILL CONTINUE TO MONITOR.
--- NOTE | 2017-02-11 10:14 | NUR ---
Patient Name: ANÍBAL DUARTE Encounter No: [id number] : 1950 Primary Insurance: MEDICARE A & B Anticipated DC Date: Planned Disposition: Home with Home Health External Planned Provider: : DCP follow-up note: Patient and family in agreement with discharge plan. No changes to plan. Case management will follow and assist as needed. Renay Ferrell
--- NOTE | 2017-02-11 10:31 | NUR ---
Nutrition follow-up/consult: TF of Jevity 1.5 charito on hold due to high residuals Labs reviewed Wt: 208# RDN will change TF formula to Vital 1.0 charito @ 30 ml with gradual increase to goal rate of 75 ml/hr. Vital 1.0 charito is designed for ptss with malabsorption issues. Thank you for the consult. RDN following.
--- NOTE | 2017-02-11 12:29 | NUR ---
1142 PATIENT HEART RATE DROPPED INTO 40'S GASPING RESP NOTED. CALLED AND NOTFIED. STATES SHE WAS ON HER WAY. 1147 AGAONAL RHYTH NO RESP. NOTED [address] ROCK NOTIFED. 1157 DR[address] ROCK HERE. 1225 aORORA NOTIFIED. NOT A CANDIATE FOR DONATTION DUE TO INFECTION AWAITING ARRIVAL.
--- NOTE | 2017-02-11 14:03 | CN ---
PATIENT NAME:ANÍBAL YUN MEDICAL RECORD: [id number] : [birth year] LOCATION:[id number] ADMIT DATE: 01/26/17 ACCOUNT: [id number] CONSULTING PHYSICIAN: CHICA NEUMANN MD REFERRING PHYSICIAN: DONTAE NOLASCO MD DATE OF CONSULTATION: 01/28/2017 CONSULT REQUESTING PHYSICIAN: Jeff Lou MD. REASON FOR CONSULTATION: Vent management. HISTORY OF PRESENT ILLNESS: Mr. Yun is a 66-year-old gentleman, now is orally intubated and sedated. History was taken from reviewing the patient's note as well as talking to the nursing staff and Dr. Lou. The patient is a 66-year-old gentleman who has end-stage renal disease on hemodialysis. The patient was brought in yesterday to the ER with mental status changes and fever. The patient found out that his bilirubin is 23. The patient was taken to the OR for ERCP and found out he has an obstruction and cholelithiasis. Postprocedure, the patient was left on the ventilator. On 2013, the patient was hospitalized at [facility] for pelvic infection. All over there, he had an extensive surgery, bowel resection and status post colostomy. REVIEW OF SYSTEMS: Mainly in the history of present illness. PAST MEDICAL HISTORY: 1. He is status post colostomy. 2. Ex-smoker. 3. End-stage renal disease on hemodialysis. PAST SURGICAL HISTORY: 1. 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 2. Status post colostomy. 3. Status post suprapubic catheter placement. ALLERGIES: No known drug allergies. MEDICATIONS: On Vouchr was reviewed. PERSONAL AND SOCIAL HISTORY: The patient is an ex-smoker. He is a nondrinker. FAMILY HISTORY: None known. PHYSICAL EXAMINATION: GENERAL: Now, the patient is orally intubated and sedated. VITAL SIGNS: The blood pressure is 91/59, pulse is 82, respirations 12, temperature is 99 and SpO2 is 98% to 100%. He is on assist control mechanical ventilation. HEENT: Conjunctiva is pale. Sclerae icteric. NECK: Supple, no JVD. CHEST: There are bibasilar crackles. No wheezing. HEART: Rate and rhythm are regular, normal sound, no murmur. ABDOMEN: Soft. Tender on deep palpation. RECTAL: Colostomy in place. Rectal exam deferred. EXTREMITIES: No cyanosis, no clubbing and no pedal edema. CONSULT REPORT [id number] ANÍBAL YUN CENTRAL NERVOUS SYSTEM: The patient is orally intubated and sedated. There is no obvious cranial nerve abnormality, but post-procedure per history, the patient is bedbound. IMAGING: Chest radiograph, there are small bilateral effusion and minimal interstitial changes. There is no consolidation. OTHER LABORATORY DATA: CBC: The WBC is 34.4, hemoglobin 9.9, hematocrit 29.9 and the platelet count is 311. Chemistry: Sodium is 140, potassium 3.8, bicarbonate 21.7, BUN is 66 and creatinine is 6. Total bilirubin is 28.4, elevated liver enzymes, elevated alkaline phosphatase, albumin 1.6. Lipase 63. ABG: The pH is 7.42, pCO2 is 35.6, the pO2 is 54 and bicarbonate 23.5. IMPRESSION: 1. Acute respiratory failure post-procedure. 2. Ascending cholangitis. 3. Jaundice, which is obstructive in nature. 4. Leukocytosis secondary to ascending cholangitis. 5. Bilateral pleural effusion. 6. End-stage renal disease. 7. Ex-smoker, possible underlying chronic obstructive pulmonary disease. 8. Cholelithiasis. 9. Acute mental status changes secondary to hepatic failure, metabolic encephalopathy. 10. Coagulopathy secondary to liver failure. His INR was 3.07. RECOMMENDATION: 1. Continue mechanical ventilation, adjust the setting. 2. Continue Zosyn and vancomycin. 3. DVT and GI stress ulcer and bleeding prevention. 4. Dr. Nichols and GI are on the case. The patient will go for another ERCP today. 5. Followup labs and chest radiograph. Discuss with Dr. Jeff Lou. Consult with Dr. Jeff Lou. The critical care time was [address] Lou, thank you for involving me in the care of Mr. Yun. TRANSINT:[id number] Voice Confirmation ID: [id number] DOCUMENT ID: [id number] CHICA NEUMANN MD at 1403 CC: CHICA NEUMANN MD and JEFF LOU MD [id number] DICTATION DATE: 01/28/17 1413 FIRST ASSIST: 01/28/17 2309 ADM IN [facility] [address] [place] [address]
== END 2017-02-11 16:52 | DRG 871 ==
LOC: D.ICU 14:37
PROVIDERS: Internal Medicine; Internal Medicine Gastroenterology; Internal Medicine Nephrology; Internal Medicine Pulmonary Disease; Specialist; ADMIT Internal Medicine Nephrology
PROC: 0F798DZ Dilation of Common Bile Duct with Intraluminal Device, Via Natural or Artificial Opening Endoscopic (ICD-10-PCS; principal; 2017-01-27 15:41)
PROC: 0FPB8DZ Removal of Intraluminal Device from Hepatobiliary Duct, Via Natural or Artificial Opening Endoscopic (ICD-10-PCS; 2017-01-28)
PROC: 0F798DZ Dilation of Common Bile Duct with Intraluminal Device, Via Natural or Artificial Opening Endoscopic (ICD-10-PCS; 2017-01-28)
PROC: 5A1945Z Respiratory Ventilation, 24-96 Consecutive Hours (ICD-10-PCS; 2017-01-28)
PROC: 05HN33Z Insertion of Infusion Device into Left Internal Jugular Vein, Percutaneous Approach (ICD-10-PCS; 2017-01-29)
PROC: B544ZZA Ultrasonography of Left Jugular Veins, Guidance (ICD-10-PCS; 2017-01-29)
PROC: 0T2BX0Z Change Drainage Device in Bladder, External Approach (ICD-10-PCS; 2017-02-02)
PROC: 0F923ZZ Drainage of Left Lobe Liver, Percutaneous Approach (ICD-10-PCS; 2017-02-09)
DX: A41.9 Sepsis, unspecified organism (principal); N18.6 End stage renal disease; E43 Unspecified severe protein-calorie malnutrition; G93.41 Metabolic encephalopathy; J95.821 Acute postprocedural respiratory failure; K80.31 Calculus of bile duct with cholangitis, unspecified, with obstruction; K22.10 Ulcer of esophagus without bleeding; D68.9 Coagulation defect, unspecified; E03.9 Hypothyroidism, unspecified; E11.22 Type 2 diabetes mellitus with diabetic chronic kidney disease; Z99.2 Dependence on renal dialysis; I48.2 Chronic atrial fibrillation; R41.0 Disorientation, unspecified; Z68.23 Body mass index [BMI] 23.0-23.9, adult; Z66 Do not resuscitate; Y83.8 Other surgical procedures as the cause of abnormal reaction of the patient, or of later complication, without mention of misadventure at the time of the procedure; D63.1 Anemia in chronic kidney disease; K72.90 Hepatic failure, unspecified without coma; L89.159 Pressure ulcer of sacral region, unspecified stage; L89.899 Pressure ulcer of other site, unspecified stage; Z78.1 Physical restraint status; Z74.01 Bed confinement status; E87.6 Hypokalemia; K76.89 Other specified diseases of liver; Z93.3 Colostomy status; Z87.891 Personal history of nicotine dependence